=== PATIENT | female | born 1960 | race Caucasian/White ===

== ENCOUNTER 2018-07-04 14:30 | Inpatient (IN) | payer MEDICAID ==
[2018-07-04] MEDS ORDERED: PROMETHAZINE HCL 25 MG TABLET PO ONE (15:38)
[2018-07-04] MEDS ORDERED: RINGERS SOLUTION,LACTATED 1,000 ML IV ONE ×2 (15:38→20:00)
--- NOTE | 2018-07-04 15:39 | ER Document Report ---
ED Medical Screen (RME) - General Chief Complaint: Nausea/Vomiting Stated Complaint: CHILLS,VOMITING,NAUSEA Time Seen by Provider: 07/04/18 15:37 Primary Care Provider: GEOFF HOLDER MD [Primary Care Provider] - Follow up as needed Mode of Arrival: Ambulatory Information source: Patient Notes: This is a 57-year-old female with a history of hypertension, dyslipidemia, diabetes, GERD who presents to the emergency room with a one-week history of nausea, vomiting, fever, sweats, body aches. TRAVEL OUTSIDE OF THE [place] IN LAST 30 DAYS: No - Related Data Allergies/Adverse Reactions: Penicillins Allergy (Verified 07/04/18 14:33) Sulfa (Sulfonamide Antibiotics) Allergy (Verified 07/04/18 14:33) Past Medical History - Social History Chew tobacco use (# tins/day): No Frequency of alcohol use: None Drug Abuse: None - Past Medical History Cardiac Medical History: Reports: Hx Hypercholesterolemia, Hx Hypertension Endocrine Medical History: Reports: Hx Diabetes Mellitus Type 2 Renal/ Medical History: Denies: Hx Peritoneal Dialysis Psychiatric Medical History: Reports: Hx Anxiety Past Surgical History: Reports: Hx Cholecystectomy, Hx Tonsillectomy, Hx Tubal Ligation - Immunizations Hx Diphtheria, Pertussis, Tetanus Vaccination: Yes Physical Exam - Vital signs Vitals: Temp Pulse Resp BP Pulse Ox 100.0 F 72 20 125/76 98 07/04/18 14:35 07/04/18 14:35 07/04/18 14:35 07/04/18 14:35 07/04/18 14:35 Course - Vital Signs Vital signs: Temp Pulse Resp BP Pulse Ox 100.0 F 72 20 125/76 98 07/04/18 14:35 07/04/18 14:35 07/04/18 14:35 07/04/18 14:35 07/04/18 14:35 Doctor's Discharge - Discharge Referrals: GEOFF HOLDER MD [Primary Care Provider] - Follow up as needed
[2018-07-04] MEDS ORDERED: NORMAL SALINE 1000 ML 1,000 ML IV ONE (16:11)
[2018-07-04 16:22] LABS: HEMATOCRIT 37.3 % (36.0-47.0); HEMOGLOBIN 12.4 g/dL (12.0-15.5); MEAN CORPUSCULAR HEMOGLOBIN 28.7 pg (27.0-33.4); MEAN CORPUSCULAR HGB CONC 33.2 g/dL (32.0-36.0); MEAN CORPUSCULAR VOLUME 86 fl (80-97); PLATELET COUNT 290 10^3/uL (150-450); RED BLOOD COUNT 4.32 10^6/uL (3.72-5.28); RED CELL DISTRIBUTION WIDTH 14.8 % (11.5-14.0); WHITE BLOOD COUNT 12.8 10^3/uL (4.0-10.5)
[2018-07-04 16:38] LABS: ALANINE AMINOTRANSFERASE 32 U/L (9-52); ALBUMIN 4.4 g/dL (3.5-5.0); ALKALINE PHOSPHATASE 171 U/L (38-126); ASPARTATE AMINO TRANSFERASE 44 U/L (14-36); BILIRUBIN,DIRECT 0.5 mg/dL (0.0-0.4); BILIRUBIN,TOTAL 0.7 mg/dL (0.2-1.3); BLOOD UREA NITROGEN 23 mg/dL (7-20); CALCIUM 10.3 mg/dL (8.4-10.2); POTASSIUM 3.8 mmol/L (3.6-5.0); TOTAL PROTEIN 8.2 g/dL (6.3-8.2)
[2018-07-04 16:43] LABS: CARBON DIOXIDE 18 mmol/L (22-30); CHLORIDE 92 mmol/L (98-107)
[2018-07-04 16:45] LABS: ABSOLUTE LYMPHOCYTES# (MANUAL) 1.5 10^3/uL (0.5-4.7); ABSOLUTE NEUTROPHILS# (MANUAL) 10.2 10^3/uL (1.7-8.2); BAND NEUTROPHILS % (MANUAL) 2 % (3-5); BASOPHILS % (MANUAL) 0 % (0-2); EOSINOPHILS % (MANUAL) 0 % (0-6); LYMPHOCYTES % (MANUAL) 12 % (13-45); MONOCYTES % (MANUAL) 8 % (3-13); SEGMENTED NEUTROPHILS % (MAN) 78 % (42-78); TOTAL CELLS COUNTED 100
[2018-07-04 16:48] LABS: ANION GAP 21 (5-19); TOXIC GRANULATION SLIGHT; TOXIC VACUOLATION PRESENT
[2018-07-04 16:49] LABS: ANISOCYTOSIS SLIGHT; OVALOCYTES SLIGHT; PLATELET COMMENT ADEQUATE; POIKILOCYTOSIS SLIGHT
[2018-07-04 16:50] LABS: GLUCOSE 423 mg/dL (75-110)
[2018-07-04 16:52] LABS: PLATELET LARGE PRESENT
[2018-07-04 16:55] LABS: A TYPE INFLUENZA AG NEGATIVE (NEGATIVE); B INFLUENZA AG NEGATIVE (NEGATIVE)
--- NOTE | 2018-07-04 19:02 | ER Document Report ---
ED General - General Chief Complaint: Nausea/Vomiting Stated Complaint: CHILLS,VOMITING,NAUSEA Time Seen by Provider: 07/04/18 15:37 Primary Care Provider: GEOFF HOLDER MD [Primary Care Provider] - Follow up as needed Mode of Arrival: Ambulatory Notes: Patient is a 57-year-old female past medical history of diabetes, does not currently use insulin, hypertension, is a prior surgical history of a cholecystectomy who presents with 5 days of generalized abdominal pain, cramping, nausea, vomiting and not having a bowel movement. Was seen by her primary care physician 4 days ago, diagnosed with a viral illness, started on ondansetron without any relief of her symptoms. She states the only thing she has been able to tolerate is intermittent sips of water and occasionally bites of banana. She states anything else that she tries to eat or drink prompted her to vomit almost immediately. Denies any history of similar symptoms in the past. Has had a temperature up to 101.6 F. She also notes associated constitutional symptoms of myalgias, fatigue and lightheadedness. Abdominal cramping is described as intermittent, diffuse, moderate to severe in nature. Nothing has been noted to improve or worsen her symptoms overall. TRAVEL OUTSIDE OF THE [place] IN LAST 30 DAYS: No - Related Data Allergies/Adverse Reactions: Penicillins Allergy (Verified 07/04/18 14:33) Sulfa (Sulfonamide Antibiotics) Allergy (Verified 07/04/18 14:33) Past Medical History - General Information source: Patient - Social History Smoking Status: Never Smoker Chew tobacco use (# tins/day): No Frequency of alcohol use: None Drug Abuse: None Lives with: Alone Family History: Reviewed & Not Pertinent Patient has suicidal ideation: No Patient has homicidal ideation: No - Past Medical History Cardiac Medical History: Reports: Hx Hypercholesterolemia, Hx Hypertension Endocrine Medical History: Reports: Hx Diabetes Mellitus Type 2 Renal/ Medical History: Denies: Hx Peritoneal Dialysis Psychiatric Medical History: Reports: Hx Anxiety Past Surgical History: Reports: Hx Cholecystectomy, Hx Tonsillectomy, Hx Tubal Ligation - Immunizations Hx Diphtheria, Pertussis, Tetanus Vaccination: Yes Review of Systems - Review of Systems Notes: Constitutional: Positive for fever. HENT: Negative for sore throat. Eyes: Negative for visual changes. Cardiovascular: Negative for chest pain. Respiratory: Negative for shortness of breath. Gastrointestinal: Positive for abdominal cramping and vomiting Genitourinary: Negative for dysuria. Musculoskeletal: Negative for back pain. Skin: Negative for rash. Neurological: Negative for headaches, weakness or numbness. 10 point ROS negative except as marked above and in HPI. Physical Exam - Vital signs Vitals: Temp Pulse Resp BP Pulse Ox 100.0 F 72 20 125/76 98 07/04/18 14:35 07/04/18 14:35 07/04/18 14:35 07/04/18 14:35 07/04/18 14:35 Interpretation: Normal Notes: PHYSICAL EXAMINATION: GENERAL: Ill in appearance but in no acute distress HEAD: Atraumatic, normocephalic. EYES: Pupils equal round and reactive to light, extraocular movements intact, sclera anicteric, conjunctiva are normal. ENT: nares patent, oropharynx clear without exudates. Moderately dry mucous membranes. NECK: Normal range of motion, supple without lymphadenopathy LUNGS: Breath sounds clear to auscultation bilaterally and equal. No wheezes rales or rhonchi. HEART: Regular tachycardia without murmurs ABDOMEN: Somewhat distended although soft abdomen. Diffusely tender most localized to the left lower quadrant, left mid quadrant and left upper quadrant. No focal tenderness the right lower quadrant. No rebound or guarding. EXTREMITIES: Normal range of motion, no pitting or edema. No cyanosis. NEUROLOGICAL: No focal neurological deficits. Moves all extremities spontaneously and on command. PSYCH: Normal mood, normal affect. SKIN: Warm, Dry, normal turgor, no rashes or lesions noted. Course - Re-evaluation Re-evalutation: 07/04/18 19:01 Patient presents with 5 days of fever, nausea, vomiting and lack of bowel movement. Abdominal exam somewhat distended. Patient's labs are somewhat suggestive of diabetic ketoacidosis that she is hyperglycemic with an associated anion gap and reduced bicarb although this could alternatively be simply hyperglycemia in the context of persistent vomiting. Venous blood gas and urinalysis are pending to further clarify. IV fluid resuscitation has been ongoing. She continues to have nausea and vomiting. Ventral hernia itself on exam is soft, compressible, easily reduced do not suspect entrapped hernia. 07/04/18 20:04 Urinalysis is consistent with acute pyelonephritis which would account for the patient's symptoms. Venous blood gas reveals normal pH the patient does have ketones in the urine. This is more consistent with a metabolic acidosis and persistent vomiting as opposed to true diabetic ketoacidosis. Will therefore withhold insulin infusion at this time. Patient will receive ongoing IV fluids. Has vomited controlled after receiving 10 mg of metoclopramide. Avis with the hospitalist Dr. Pedro has accepted the patient to medical floor admission. - Vital Signs Vital signs: Temp Pulse Resp BP Pulse Ox 100.2 F 101 H 16 115/64 97 07/04/18 19:56 07/04/18 18:26 07/04/18 18:26 07/04/18 18:26 07/04/18 18:26 - Laboratory Result Diagrams: 07/04/18 16:00 07/04/18 16:00 Laboratory results interpreted by me: 07/04/18 07/04/18 07/04/18 16:00 16:00 18:05 WBC 12.8 H RDW 14.8 H Band Neutrophils % 2 L Lymphocytes % (Manual) 12 L Abs Neuts (Manual) 10.2 H VBG HCO3 Sodium 131.0 L Chloride 92 L Carbon Dioxide 18 L Anion Gap 21 H BUN 23 H Glucose 423 H* POC Glucose 353 H Calcium 10.3 H Direct Bilirubin 0.5 H AST 44 H Alkaline Phosphatase 171 H Urine Protein Urine Glucose (UA) Urine Ketones Urine Blood Ur Leukocyte Esterase 07/04/18 07/04/18 19:15 19:15 WBC RDW Band Neutrophils % Lymphocytes % (Manual) Abs Neuts (Manual) VBG HCO3 19.8 L Sodium Chloride Carbon Dioxide Anion Gap BUN Glucose POC Glucose Calcium Direct Bilirubin AST Alkaline Phosphatase Urine Protein 100 H Urine Glucose (UA) >=500 H Urine Ketones 80 H Urine Blood MODERATE H Ur Leukocyte Esterase LARGE H Discharge - Discharge Clinical Impression: Metabolic acidosis, Pyelonephritis, Hyperglycemia Intractable nausea and vomiting Qualifiers: Vomiting type: unspecified Qualified Code(s): R11.2 - Nausea with vomiting, unspecified Condition: Fair Disposition: ADMITTED INPATIENT Admitting Provider: Hospitalist Unit Admitted: Medical Floor Referrals: GEOFF HOLDER MD [Primary Care Provider] - Follow up as needed
[2018-07-04 19:26] LABS: VENOUS BLOOD BASE EXCESS -5.9 mmol/L; VENOUS BLOOD HCO3 19.8 mmol/L (20-32); VENOUS BLOOD PH 7.31 (7.30-7.42)
[2018-07-04 19:29] LABS: APPEARANCE,URINE CLOUDY; BILIRUBIN,URINE NEGATIVE (NEGATIVE); COLOR,URINE YELLOW; GLUCOSE, URINE >=500 mg/dL (NEGATIVE); KETONES,URINE 80 mg/dL (NEGATIVE); LEUKOCYTE ESTERASE,URINE LARGE (NEGATIVE); NITRITE,URINE NEGATIVE (NEGATIVE); PROTEIN,URINE 100 mg/dL (NEGATIVE); URINE SPECIFIC GRAVITY 1.022; UROBILINOGEN,URINE NEGATIVE mg/dL (<2.0)
[2018-07-04] MEDS ORDERED: METOCLOPRAMIDE HCL INJ/PF 10 MG/2 ML SDV IV ONE ×2 (19:49→19:54)
[2018-07-04] MEDS ORDERED: INSULIN REG, HUMAN 100 UNIT/ML 3 ML VIAL (PYX) IV ONE (19:55)
[2018-07-04] MEDS ORDERED: POTASSI CL 20 MEQ/50 ML RIDER 20 MEQ/50 ML RTUPB IV ONE (19:55)
[2018-07-04] MEDS ORDERED: CEFTRIAXONE INJ 1000 MG VIAL IV ONE (20:00)
[2018-07-04] MEDS ORDERED: MAGNESIUM HYDROXIDE SUSP 30 ML UDCUP PO PRN (20:17)
[2018-07-04] MEDS ORDERED: MAG HYDROX/AL HYDROX/SIMETH SUSP 30 ML UDCUP PO PRN (20:17)
[2018-07-04] MEDS ORDERED: DIAZEPAM INJ 10 MG/2 ML DISP.SYRIN IV PRN (20:22)
[2018-07-04] MEDS ORDERED: ACETAMINOPHEN 650 MG SUPP.RECT PR PRN (20:22)
[2018-07-04] MEDS ORDERED: NICOTINE 21 MG/24 HR PATCH.TD24 TD PRN (20:22)
[2018-07-04] MEDS ORDERED: DEXTROSE 50%-WATER 25 GM/50 ML DISP.SYRIN IV PRN ×2 (20:24)
[2018-07-04] MEDS ORDERED: DEXTROSE 40% GEL 15 GM TUBE PO PRN ×2 (20:24)
[2018-07-04] MEDS ORDERED: GLUCAGON,HUMAN RECOMB 1 MG INJ IM PRN (20:24)
[2018-07-04] MEDS ORDERED: HYDRALAZINE HCL INJ/PF 20 MG/1 ML SDV IV PRN (20:26)
[2018-07-04] MEDS ORDERED: INSULIN LISPRO 100 UNIT/ML 3 ML VIAL SUBCUT SCH (22:00)
[2018-07-05] MEDS: METOCLOPRAMIDE HCL INJ/PF 10 MG/2 ML SDV IV SCH ×5 (00:41→21:34)
[2018-07-05] MEDS: SUCRALFATE SUSP 1 GM/10 ML UDCUP PO SCH ×5 (00:42→21:32)
[2018-07-05] MEDS: NALBUPHINE HCL INJ 10 MG/1 ML AMPULE IV PRN ×5 (00:42→20:01)
[2018-07-05] MEDS: PANTOPRAZOLE SODIUM 40 MG VIAL IV SCH ×3 (00:42→21:33)
[2018-07-05] MEDS: HEPARIN SOD (PORCINE) 5,000 UNIT/ML 1 ML SYRINGE SUBCUT SCH ×4 (00:43→21:33)
[2018-07-05] MEDS: POTASSI CL 20 MEQ/1/2NS 1L 20 MEQ/1,000 ML RTUINJ IV PRN ×3 (02:28→20:26)
--- NOTE | 2018-07-05 03:31 | PDOC H&P ---
History of Present Illness Admission Date/PCP: GEOFF HOLDER MD Patient complains of: Nausea with vomiting History of Present Illness: YULIANA PAEZ is a 57 year old female is a 57-year-old female who presented to the emergency room with a one-week history of nausea and vomiting. She admits that for the last week she has been having constant, aching left flank pain and episodic cramping epigastric abdominal pain, associated with vomiting, both have been progressively worsening to the point where they are now severe. She experiencing severe nausea and vomiting which has precluded her from any oral intake more than just a sip of water or a small sliver of a banana slice. Her nausea vomiting and abdominal pain have been accompanied by subjec tive fever and chills, constipation, generalized malaise and a decreased appetite all resulting in a weight loss of 9 pounds over the last 5 days. The patient denies prior similar episodes and has not identified any additional aggravating or ameliorating factors for her nausea vomiting and abdominal pain. In the emergency room she was found to have acute kidney injury secondary to dehydration and an obvious pyelonephritis. She was subsequently admitted to the hospital for further evaluation and treatment. Past Medical History Cardiac Medical History: Reports: Hyperlipidema, Hypertension Denies: Atrial Fibrillation, Congestive Heart Failure, Coronary Artery Disease, Myocardial Infarction Pulmonary Medical History: Denies: Asthma, Chronic Obstructive Pulmonary Disease (COPD) EENT Medical History: Denies: Cataracts Neurological Medical History: Denies: Hemorrhagic CVA, Ischemic CVA, Seizures Endocrine Medical History: Reports: Diabetes Mellitus Type 2, Obesity Denies: Diabetes Mellitus Type 1, Hyperthyroidism, Hypothyroidism Renal/ Medical History: Denies: Chronic Kidney Disease, Nephrolithiasis Malignancy Medical History: Reports: None GI Medical History: Reports: Gastroesophageal Reflux Disease Denies: Cirrhosis, Hepatitis Musculoskeltal Medical History: Denies: Arthritis, Gout Skin Medical History: Denies: Eczema, Psoriasis Psychiatric Medical History: Denies: Alcohol Dependency, Substance Abuse, Tobacco Dependency Traumatic Medical History: Reports: None Hematology: Reports: Anemia Denies: Bleeding Tendencies Infectious Medical History: Reports: None Past Surgical History Past Surgical History: Reports: Cholecystectomy, Tonsillectomy, Tubal Ligation, Other - D&C for spontaneous , bladder sling Social History Information Source: Patient Lives with: Alone Smoking Status: Never Smoker Frequency of Alcohol Use: None Hx Recreational Drug Use: No Drugs: None Hx Prescription Drug Abuse: No - Advance Directive Resuscitation Status: Full Code Surrogate healthcare decision maker:: Her daughter Tete Family History Family History: CAD, DM, Hypertension Parental Family History Reviewed: Yes Children Family History Reviewed: No Sibling(s) Family History Reviewed.: Yes Medication/Allergy Home Medications: Lisinopril 40 mg PO DAILY 08/09/14 Simvastatin 40 mg PO DAILY 08/09/14 Furosemide [Lasix 20 mg Tablet] 20 mg PO DAILYP PRN 07/04/18 Metformin HCl [Glucophage 500 mg Tablet] 500 mg PO MEALS 07/04/18 Metoprolol Tartrate [Lopressor 50 mg Tablet] 50 mg PO Q12 07/04/18 Ondansetron [Zofran Odt 4 mg Tablet] 8 mg PO Q8HP PRN 07/04/18 Allergies/Adverse Reactions: Penicillins Allergy (Verified 07/04/18 14:33) Sulfa (Sulfonamide Antibiotics) Allergy (Verified 07/04/18 14:33) Review of Systems Constitutional: PRESENT: as per HPI, chills, fever(s), other - Malaise Eyes: ABSENT: visual disturbances, other - Ocular pain Ears: ABSENT: hearing changes, other - Ear pain Nose, Mouth, and Throat: ABSENT: mouth pain, sore throat Cardiovascular: ABSENT: chest pain, palpitations Respiratory: ABSENT: cough, dyspnea Gastrointestinal: PRESENT: as per HPI, abdominal pain, constipation, nausea, v omiting. ABSENT: diarrhea, hematemesis Genitourinary: ABSENT: dysuria, hematuria Musculoskeletal: ABSENT: deformity, joint swelling Integumentary: ABSENT: pruritus, rash Neurological: ABSENT: confusion, convulsions, focal weakness, memory loss Psychiatric: ABSENT: anxiety, depression Endocrine: ABSENT: cold intolerance, heat intolerance Hematologic/Lymphatic: ABSENT: easy bleeding, easy bruising Physical Exam Vital Signs: Temp Pulse Resp BP Pulse Ox 100.2 F 101 H 16 115/64 97 07/04/18 19:56 07/04/18 18:26 07/04/18 18:26 07/04/18 18:26 07/04/18 18:26 Intake & Output 07/02/18 07/03/18 07/04/18 23:59 23:59 23:59 Intake Total 1000 Balance 1000 Weight 100.7 kg General appearance: PRESENT: no acute distress, cooperative, obese Head exam: PRESENT: atraumatic, normocephalic Eye exam: PRESENT: conjunctiva pink. ABSENT: scleral icterus Ear exam: PRESENT: normal external ear exam. ABSENT: bleeding, drainage Mouth exam: PRESENT: dry mucosa, neck supple Neck exam: ABSENT: thyromegaly, tracheal deviation Respiratory exam: PRESENT: clear to auscultation lilly, symmetrical, unlabored Cardiovascular exam: PRESENT: RRR. ABSENT: clicks, gallop, rubs Pulses: PRESENT: normal radial pulses, normal dorsalis pedis pul Vascular exam: PRESENT: normal capillary refill. ABSENT: pallor GI/Abdominal exam: PRESENT: normal bowel sounds, soft, tenderness - Severe tenderness over the entire abdomen to light palpation. Left CVA tenderness is also noted. Rectal exam: PRESENT: deferred Extremities exam: ABSENT: joint swelling, pedal edema Musculoskeletal exam: ABSENT: deformity, dislocation Neurological exam: PRESENT: alert, oriented to person, oriented to place, oriented to time, oriented to situation, CN II-XII grossly intact. ABSENT: mo tor sensory deficit Psychiatric exam: PRESENT: appropriate affect, normal mood Skin exam: PRESENT: dry, intact, warm. ABSENT: jaundice, rash, urticaria Results Laboratory Results: 07/04/18 16:00 07/04/18 16:00 07/04/18 07/04/18 07/04/18 16:00 16:00 19:15 WBC 12.8 H RBC 4.32 Hgb 12.4 Hct 37.3 MCV 86 MCH 28.7 MCHC 33.2 RDW 14.8 H Plt Count 290 Seg Neutrophils % Not Reportable Lymphocytes % Not Reportable Monocytes % Not Reportable Eosinophils % Not Reportable Basophils % Not Reportable Absolute Neutrophils Not Reportable Absolute Lymphocytes Not Reportable Absolute Monocytes Not Reportable Absolute Eosinophils Not Reportable Absolute Basophils Not Reportable VBG pH 7.31 VBG pCO2 40.0 VBG HCO3 19.8 L VBG Base Excess -5.9 Sodium 131.0 L Potassium 3.8 Chloride 92 L Carbon Dioxide 18 L Anion Gap 21 H BUN 23 H Creatinine 0.86 Est GFR ( Amer) > 60 Est GFR (Non-Af Amer) > 60 Glucose 423 H* Calcium 10.3 H Total Bilirubin 0.7 AST 44 H ALT 32 Alkaline Phosphatase 171 H Total Protein 8.2 Albumin 4.4 Urine Color Urine Appearance Urine pH Ur Specific [place] Urine Protein Urine Glucose (UA) Urine Ketones Urine Blood Urine Nitrite Ur Leukocyte Esterase Urine WBC (Auto) Urine RBC (Auto) 07/04/18 19:15 WBC RBC Hgb Hct MCV MCH MCHC RDW Plt Count Seg Neutrophils % Lymphocytes % Monocytes % Eosinophils % Basophils % Absolute Neutrophils Absolute Lymphocytes Absolute Monocytes Absolute Eosinophils Absolute Basophils VBG pH VBG pCO2 VBG HCO3 VBG Base Excess Sodium Potassium Chloride Carbon Dioxide Anion Gap BUN Creatinine Est GFR ( Amer) Est GFR (Non-Af Amer) Glucose Calcium Total Bilirubin AST ALT Alkaline Phosphatase Total Protein Albumin Urine Color YELLOW Urine Appearance CLOUDY Urine pH 5.0 Ur Specific [place] 1.022 Urine Protein 100 H Urine Glucose (UA) >=500 H Urine Ketones 80 H Urine Blood MODERATE H Urine Nitrite NEGATIVE Ur Leukocyte Esterase LARGE H Urine WBC (Auto) >182 Urine RBC (Auto) 19 Assessment & Plan - Diagnosis (1) Pyelonephritis Is this a current diagnosis for this admission?: Yes Plan: Patient be treated with IV fluids and other supportive and symptomatic cares as appropriate. Additionally she will be on Rocephin 1 g IV every 24 hours awaiting urine culture results for more specific therapy. Patient's pain associated with her pyelonephritis will be treated with Nubain 10 mg IV every 3 hours as needed. (2) Intractable nausea and vomiting Qualifiers: Vomiting type: unspecified Qualified Code(s): R11.2 - Nausea with vomiting, unspecified Is this a current diagnosis for this admission?: Yes Plan: Patient be treated with supportive and symptomatic cares utilizing a regimen of antiemetics and proton pump inhibitors. Additionally she will receive IV fluids until she is able to eat a substantial diet and take in adequate oral fluids. An amylase and lipase will be obtained in the morning for reevaluation of possible pancreatic involvement. (3) Metabolic acidosis Is this a current diagnosis for this admission?: Yes Plan: Patient be treated with IV fluids 167 mL/h utilizing half-normal saline with 20 mEq of KCl. Her CBC and basic metabolic profile as well as a serum magnesium be followed on a daily basis. A venous blood gas will be obtained in the morning. (4) Diabetes mellitus type 2 in obese Is this a current diagnosis for this admission?: Yes Plan: Patient will be treated with a sliding scale before meals and at bedtime initially with further intervention as appropriate. - Time Time Spent: 30 to 50 Minutes Critical Time spent with patient: Less than 15 minutes Medications reviewed and adjusted accordingly: Yes Anticipated discharge: Home - Inpatient Certification Based on my medical assessment, after consideration of the patient's comorbidities, presenting symptoms, or acuity I expect that the services needed warrant INPATIENT care.: Yes I certify that my determination is in accordance with my understanding of Medicare's requirements for reasonable and necessary INPATIENT services [42 CFR 412.3e].: Yes Medical Necessity: Significant Comorbidiites Make Outpatient Treatment Too Risky, Need Close Monitoring Due to Risk of Patient Decompensation, Need For IV Fluids, Need for Pain Control, Need for IV Antibiotics, Risk of Complication if Not Cared For in Hospital
[2018-07-05 04:33] LABS: VENOUS BLOOD BASE EXCESS -9.7 mmol/L; VENOUS BLOOD HCO3 13.9 mmol/L (20-32); VENOUS BLOOD PCO2 24.6 mmHg (35-63); VENOUS BLOOD PH 7.37 (7.30-7.42)
[2018-07-05 04:36] LABS: HEMATOCRIT 33.2 % (36.0-47.0); HEMOGLOBIN 11.1 g/dL (12.0-15.5); MEAN CORPUSCULAR HEMOGLOBIN 28.7 pg (27.0-33.4); MEAN CORPUSCULAR HGB CONC 33.5 g/dL (32.0-36.0); MEAN CORPUSCULAR VOLUME 86 fl (80-97); PLATELET COUNT 268 10^3/uL (150-450); RED BLOOD COUNT 3.87 10^6/uL (3.72-5.28); RED CELL DISTRIBUTION WIDTH 14.8 % (11.5-14.0); WHITE BLOOD COUNT 10.8 10^3/uL (4.0-10.5)
[2018-07-05 04:48] LABS: BLOOD UREA NITROGEN 17 mg/dL (7-20); CALCIUM 9.4 mg/dL (8.4-10.2); CARBON DIOXIDE 14 mmol/L (22-30); CHLORIDE 98 mmol/L (98-107); CHOLESTEROL 179.54 mg/dL (0-200); GLUCOSE 330 mg/dL (75-110); LIPASE 45.5 U/L (23-300); TRIGLYCERIDES 254 mg/dL (<150)
[2018-07-05 04:52] LABS: AMYLASE < 30 U/L (30-110); VLDL CHOLESTEROL 50.8 mg/dL (10-31)
[2018-07-05 04:53] LABS: SODIUM 132.8 mmol/L (137-145)
[2018-07-05 05:01] LABS: ANION GAP 21 (5-19)
[2018-07-05 05:02] LABS: ABSOLUTE LYMPHOCYTES# (MANUAL) 2.9 10^3/uL (0.5-4.7); ABSOLUTE MONOCYTES # (MANUAL) 0.8 10^3/uL (0.1-1.4); ABSOLUTE NEUTROPHILS# (MANUAL) 7.1 10^3/uL (1.7-8.2); BASOPHILS % (MANUAL) 0 % (0-2); EOSINOPHILS % (MANUAL) 0 % (0-6); LYMPHOCYTES % (MANUAL) 27 % (13-45); MONOCYTES % (MANUAL) 7 % (3-13); SEGMENTED NEUTROPHILS % (MAN) 66 % (42-78); TOTAL CELLS COUNTED 100
[2018-07-05 05:03] LABS: PLATELET COMMENT ADEQUATE; RBC MORPHOLOGY COMMENT NORMO-CYTIC/CHROMIC
[2018-07-05 05:10] LABS: DIRECT LDL 103 mg/dL (<100)
[2018-07-05 05:16] LABS: FREE T3 2.65 pg/mL (2.77-5.27); FREE T4 (FREE THYROXINE) 1.13 ng/dL (0.78-2.19)
[2018-07-05 05:30] LABS: THYROID STIMULATING HORMONE 5.07 uIU/mL (0.47-4.68)
[2018-07-05] MEDS: INSULIN REG, HUMAN 100 UNIT/ML 3 ML VIAL (PYX) SUBCUT PRN ×4 (06:32→22:37)
[2018-07-05] MEDS: PROMETHAZINE HCL INJ 25 MG/1 ML VIAL IV PRN ×4 (07:30→21:35)
[2018-07-05] MEDS: CEFTRIAXONE 1 GM/D5W RTU 1 GM/50 ML RTUPB IV SCH (09:38)
[2018-07-05] MEDS ORDERED: DOCUSATE SODIUM 100 MG/10 ML UDC PO SCH (10:00)
[2018-07-05] MEDS: DOCUSATE SODIUM 100 MG CAPSULE PO SCH ×2 (12:05→18:21)
--- NOTE | 2018-07-05 17:53 | PDOC PROGRESS REPORT ---
Subjective Progress Note for:: 07/05/18 Subjective:: 57 y.o. F with HTN, HLD, HYPOthyroidism, DM is admittde to [facility] for pyelonephritis. Patient seen this afternoon on rounds, she is resting in bed. She appears uncomfortable, laying on her right side in order to "take pressure off the back."The patient endorses a history of chronic lower back pain, for which she only takes Tylenol or Motrin as needed. The patient states that her pain does not feel like typical chronic back pain. (+) CVA tenderness. Denies dysuria, urinary frequency or urgency. Currently receiving Rocephin for her UTI/pyelonephritis. PRN nubain for analgesia. Reason For Visit: ACUTE PYELONEPHRITIS Physical Exam Vital Signs: Temp Pulse Resp BP Pulse Ox 98.5 F 86 17 132/56 H 96 07/05/18 16:00 07/05/18 16:00 07/05/18 16:00 07/05/18 16:00 07/05/18 16:00 Intake & Output 07/04/18 07/05/18 07/06/18 06:59 06:59 07:59 Intake Total 2450 1503 Balance 2450 1503 Weight 102.9 kg General appearance: PRESENT: mild distress - secondary to pain, well-developed, well-nourished Head exam: PRESENT: atraumatic Eye exam: PRESENT: conjunctiva pink, PERRLA Mouth exam: PRESENT: moist, tongue midline Neck exam: PRESENT: full ROM Respiratory exam: PRESENT: clear to auscultation lilly, symmetrical, unlabored Cardiovascular exam: PRESENT: RRR Pulses: PRESENT: normal radial pulses, normal dorsalis pedis pul Vascular exam: PRESENT: normal capillary refill GI/Abdominal exam: PRESENT: soft. ABSENT: distended, tenderness Rectal exam: PRESENT: deferred Extremities exam: PRESENT: full ROM Musculoskeletal exam: PRESENT: full ROM, normal inspection, tenderness - (+) CVA tenderness Neurological exam: PRESENT: alert, awake, oriented to person, oriented to place, oriented to time, oriented to situation Psychiatric exam: PRESENT: appropriate affect Skin exam: PRESENT: dry, intact, normal color Results Laboratory Results: 07/05/18 04:14 07/05/18 04:14 07/04/18 07/04/18 07/04/18 19:15 19:15 20:20 WBC RBC Hgb Hct MCV MCH MCHC RDW Plt Count Seg Neutrophils % Lymphocytes % Monocytes % Eosinophils % Basophils % Absolute Neutrophils Absolute Lymphocytes Absolute Monocytes Absolute Eosinophils Absolute Basophils VBG pH 7.31 VBG pCO2 40.0 VBG HCO3 19.8 L VBG Base Excess -5.9 Sodium Potassium Chloride Carbon Dioxide Anion Gap BUN Creatinine Est GFR ( Amer) Est GFR (Non-Af Amer) Glucose Lactic Acid 1.8 Calcium Magnesium Triglycerides Cholesterol LDL Cholesterol Direct VLDL Cholesterol HDL Cholesterol Amylase Lipase TSH Free T4 Free T3 pg/mL Urine Color YELLOW Urine Appearance CLOUDY Urine pH 5.0 Ur Specific [place] 1.022 Urine Protein 100 H Urine Glucose (UA) >=500 H Urine Ketones 80 H Urine Blood MODERATE H Urine Nitrite NEGATIVE Ur Leukocyte Esterase LARGE H Urine WBC (Auto) >182 Urine RBC (Auto) 19 07/05/18 07/05/18 07/05/18 00:30 04:14 04:14 WBC 10.8 H RBC 3.87 Hgb 11.1 L Hct 33.2 L MCV 86 MCH 28.7 MCHC 33.5 RDW 14.8 H Plt Count 268 Seg Neutrophils % Not Reportable Lymphocytes % Not Reportable Monocytes % Not Reportable Eosinophils % Not Reportable Basophils % Not Reportable Absolute Neutrophils Not Reportable Absolute Lymphocytes Not Reportable Absolute Monocytes Not Reportable Absolute Eosinophils Not Reportable Absolute Basophils Not Reportable VBG pH VBG pCO2 VBG HCO3 VBG Base Excess Sodium Potassium Chloride Carbon Dioxide Anion Gap BUN Creatinine Est GFR ( Amer) Est GFR (Non-Af Amer) Glucose Lactic Acid 0.8 0.6 L Calcium Magnesium Triglycerides Cholesterol LDL Cholesterol Direct VLDL Cholesterol HDL Cholesterol Amylase Lipase TSH Free T4 Free T3 pg/mL Urine Color Urine Appearance Urine pH Ur Specific [place] Urine Protein Urine Glucose (UA) Urine Ketones Urine Blood Urine Nitrite Ur Leukocyte Esterase Urine WBC (Auto) Urine RBC (Auto) 07/05/18 07/05/18 07/05/18 04:14 04:14 04:14 WBC RBC Hgb Hct MCV MCH MCHC RDW Plt Count Seg Neutrophils % Lymphocytes % Monocytes % Eosinophils % Basophils % Absolute Neutrophils Absolute Lymphocytes Absolute Monocytes Absolute Eosinophils Absolute Basophils VBG pH 7.37 VBG pCO2 24.6 L VBG HCO3 13.9 L VBG Base Excess -9.7 Sodium 132.8 L Potassium 4.0 Chloride 98 Carbon Dioxide 14 L Anion Gap 21 H BUN 17 Creatinine 0.70 Est GFR ( Amer) > 60 Est GFR (Non-Af Amer) > 60 Glucose 330 H Lactic Acid Calcium 9.4 Magnesium 1.9 Triglycerides 254 H Cholesterol 179.54 LDL Cholesterol Direct 103 H VLDL Cholesterol 50.8 H HDL Cholesterol 33 L Amylase < 30 L Lipase 45.5 TSH 5.07 H Free T4 1.13 Free T3 pg/mL 2.65 L Urine Color Urine Appearance Urine pH Ur Specific [place] Urine Protein Urine Glucose (UA) Urine Ketones Urine Blood Urine Nitrite Ur Leukocyte Esterase Urine WBC (Auto) Urine RBC (Auto) Status: Imported from PACS Assessment & Plan - Diagnosis (1) Pyelonephritis Is this a current diagnosis for this admission?: Yes Plan: As evidenced by urinalysis indicative of UTI Low-grade fever upon admission (+) Flank pain. (+) CVA tenderness (+) Leukocytosis. Currently awaiting urine cultures and sensitivities Empiric antibiotic treatment with Rocephin IV Nubain as needed for pain Tylenol as needed for pain or fever (2) Diabetes mellitus type 2 in obese Is this a current diagnosis for this admission?: Yes Plan: H diabetes Accu-Cheks AC at bedtime Humalog sliding scale insulin (3) HTN (hypertension) Qualifiers: Hypertension type: essential hypertension Qualified Code(s): I10 - Essential (primary) hypertension Is this a current diagnosis for this admission?: Yes Plan: [facility] HTN Continue home dose metoprolol and lisinopril - Time Time Spent with patient: 15-24 minutes Medications reviewed and adjusted accordingly: Yes Anticipated discharge: Home Within: within 72 hours - Inpatient Certification Based on my medical assessment, after consideration of the patient's comorbidities, presenting symptoms, or acuity I expect that the services needed warrant INPATIENT care.: Yes I certify that my determination is in accordance with my understanding of Medicare's requirements for reasonable and necessary INPATIENT services [42 CFR 412.3e].: Yes Medical Necessity: Need For IV Fluids, Need for IV Antibiotics
[2018-07-05] MEDS ORDERED: LIDOCAINE 5% (700 MG) TRANSDERMAL ADH..PATCH TP ONE (19:00)
[2018-07-05] MEDS: ACETAMINOPHEN 325 MG TABLET PO PRN (20:23)
[2018-07-05] MEDS ORDERED: LIDOCAINE 5% (700 MG) TRANSDERMAL ADH..PATCH ONE (21:25)
[2018-07-06] MEDS: NALBUPHINE HCL INJ 10 MG/1 ML AMPULE IV PRN ×5 (01:19→23:22)
[2018-07-06] MEDS: ACETAMINOPHEN 325 MG TABLET PO PRN ×2 (04:09→16:50)
[2018-07-06] MEDS: HEPARIN SOD (PORCINE) 5,000 UNIT/ML 1 ML SYRINGE SUBCUT SCH ×3 (05:33→21:47)
[2018-07-06 06:36] LABS: HEMATOCRIT 30.7 % (36.0-47.0); HEMOGLOBIN 10.4 g/dL (12.0-15.5); MEAN CORPUSCULAR HEMOGLOBIN 28.8 pg (27.0-33.4); MEAN CORPUSCULAR VOLUME 85 fl (80-97); PLATELET COUNT 227 10^3/uL (150-450); RED BLOOD COUNT 3.62 10^6/uL (3.72-5.28); RED CELL DISTRIBUTION WIDTH 15.2 % (11.5-14.0); WHITE BLOOD COUNT 9.2 10^3/uL (4.0-10.5)
[2018-07-06] MEDS: POTASSI CL 20 MEQ/1/2NS 1L 20 MEQ/1,000 ML RTUINJ IV PRN ×3 (06:43→20:38)
[2018-07-06 07:02] LABS: ANION GAP 17 (5-19); BLOOD UREA NITROGEN 12 mg/dL (7-20); CALCIUM 9.2 mg/dL (8.4-10.2); CARBON DIOXIDE 15 mmol/L (22-30); CHLORIDE 102 mmol/L (98-107); GLUCOSE 273 mg/dL (75-110); POTASSIUM 3.7 mmol/L (3.6-5.0); SODIUM 133.7 mmol/L (137-145)
[2018-07-06 07:09] LABS: ABSOLUTE LYMPHOCYTES# (MANUAL) 2.8 10^3/uL (0.5-4.7); ABSOLUTE MONOCYTES # (MANUAL) 0.8 10^3/uL (0.1-1.4); ABSOLUTE NEUTROPHILS# (MANUAL) 5.6 10^3/uL (1.7-8.2); BASOPHILS % (MANUAL) 0 % (0-2); EOSINOPHILS % (MANUAL) 0 % (0-6); LYMPHOCYTES % (MANUAL) 30 % (13-45); MONOCYTES % (MANUAL) 9 % (3-13); SEGMENTED NEUTROPHILS % (MAN) 61 % (42-78); TOTAL CELLS COUNTED 100
[2018-07-06 07:10] LABS: ANISOCYTOSIS SLIGHT; PLATELET COMMENT ADEQUATE; POLYCHROMASIA SLIGHT
[2018-07-06] MEDS: PROMETHAZINE HCL INJ 25 MG/1 ML VIAL IV PRN ×3 (08:33→18:27)
[2018-07-06] MEDS: METOCLOPRAMIDE HCL INJ/PF 10 MG/2 ML SDV IV SCH ×4 (08:33→22:03)
[2018-07-06] MEDS: SUCRALFATE SUSP 1 GM/10 ML UDCUP PO SCH ×4 (08:34→21:47)
[2018-07-06] MEDS: INSULIN REG, HUMAN 100 UNIT/ML 3 ML VIAL (PYX) SUBCUT PRN (08:46)
[2018-07-06] MEDS: PANTOPRAZOLE SODIUM 40 MG VIAL IV SCH ×2 (10:22→21:47)
[2018-07-06] MEDS: DOCUSATE SODIUM 100 MG CAPSULE PO SCH ×2 (10:23→17:01)
[2018-07-06] MEDS: CEFTRIAXONE 1 GM/D5W RTU 1 GM/50 ML RTUPB IV SCH (10:23)
[2018-07-06] MEDS ORDERED: MAGNESIUM HYDROXIDE SUSP 30 ML UDCUP PO PRN (11:08)
[2018-07-06] MEDS ORDERED: INSULIN REG, HUMAN 100 UNIT/ML 3 ML VIAL (PYX) ONE (13:08)
--- NOTE | 2018-07-06 16:27 | PDOC PROGRESS REPORT ---
Subjective Progress Note for:: 07/06/18 Subjective:: 57 y.o. F with HTN, HLD, HYPOthyroidism, DM is admittde to [facility] for pyelonephritis. Patient seen this afternoon on rounds, she is resting in bed. She appears much more comfortable today, still laying on her right side in order to "take pressure off the back." The patient states she is experiencing lower back pain, radiating around to bilateral flanks. Upon physical assessment, the patient is awake, alert and oriented, able to answer all questions appropriately. (+) CVA tenderness. Denies dysuria, urinary frequency or urgency. Currently receiving Rocephin for her UTI/pyelonephritis. PRN nubain for analgesia. Reason For Visit: ACUTE PYELONEPHRITIS Physical Exam Vital Signs: Temp Pulse Resp BP Pulse Ox 98.7 F 98 16 136/77 H 99 07/06/18 11:46 07/06/18 11:46 07/06/18 11:46 07/06/18 11:46 07/06/18 11:46 Intake & Output 07/05/18 07/06/18 07/07/18 05:59 06:59 06:59 Intake Total 1050 Output Total Balance 1050 Weight General appearance: PRESENT: obese Head exam: PRESENT: atraumatic Eye exam: PRESENT: conjunctiva pink, PERRLA Ear exam: PRESENT: normal external ear exam Mouth exam: PRESENT: moist, tongue midline Teeth exam: PRESENT: poor dentation Neck exam: PRESENT: full ROM Respiratory exam: PRESENT: clear to auscultation lilly, symmetrical, unlabored Cardiovascular exam: PRESENT: RRR Pulses: PRESENT: normal radial pulses, normal dorsalis pedis pul Vascular exam: PRESENT: normal capillary refill GI/Abdominal exam: PRESENT: normal bowel sounds, soft. ABSENT: distended, tenderness Rectal exam: PRESENT: deferred Extremities exam: PRESENT: full ROM, tenderness - CVA tenderness. ABSENT: pedal edema Musculoskeletal exam: PRESENT: ambulatory, full ROM, normal inspection Neurological exam: PRESENT: alert, awake, oriented to person, oriented to place, oriented to time, oriented to situation Skin exam: PRESENT: dry, intact, normal color Results Laboratory Results: 07/06/18 05:28 07/06/18 05:28 07/06/18 07/06/18 05:28 05:28 WBC 9.2 RBC 3.62 L Hgb 10.4 L Hct 30.7 L MCV 85 MCH 28.8 MCHC 34.0 RDW 15.2 H Plt Count 227 Seg Neutrophils % Not Reportable Lymphocytes % Not Reportable Monocytes % Not Reportable Eosinophils % Not Reportable Basophils % Not Reportable Absolute Neutrophils Not Reportable Absolute Lymphocytes Not Reportable Absolute Monocytes Not Reportable Absolute Eosinophils Not Reportable Absolute Basophils Not Reportable Sodium 133.7 L Potassium 3.7 Chloride 102 Carbon Dioxide 15 L Anion Gap 17 BUN 12 Creatinine 0.61 Est GFR ( Amer) > 60 Est GFR (Non-Af Amer) > 60 Glucose 273 H Calcium 9.2 Magnesium 1.9 Status: Imported from PACS Assessment & Plan - Diagnosis (1) Metabolic acidosis Is this a current diagnosis for this admission?: Yes Plan: Calculated anion gap 20 Delta ratio 1 -indicative of true metabolic acidosis Patient currently taking metformin, this is likely the culprit No other possible etiology from [place] pneumonic Metformin currently on hold, only using sliding scale insulin (2) Pyelonephritis Is this a current diagnosis for this admission?: Yes Plan: As evidenced by urinalysis indicative of UTI Low-grade fever upon admission (+) Flank pain. (+) CVA tenderness (+) Leukocytosis. Preliminary urine culture results indicative of GNR Currently awaiting urine cultures and sensitivities Empiric antibiotic treatment with Rocephin IV Nubain as needed for pain Tylenol as needed for pain or fever kpak for lower back pain/flank pain (3) Diabetes mellitus type 2 in obese Is this a current diagnosis for this admission?: Yes Plan: H diabetes Accu-Cheks AC at bedtime Humalog sliding scale insulin (4) HTN (hypertension) Qualifiers: Hypertension type: essential hypertension Qualified Code(s): I10 - Essential (primary) hypertension Is this a current diagnosis for this admission?: Yes Plan: PMH HTN Continue home dose metoprolol and lisinopril - Time Time Spent with patient: 15-24 minutes Medications reviewed and adjusted accordingly: Yes Anticipated discharge: Home Within: within 48 hours - Inpatient Certification Based on my medical assessment, after consideration of the patient's comorbidities, presenting symptoms, or acuity I expect that the services needed warrant INPATIENT care.: Yes I certify that my determination is in accordance with my understanding of Medicare's requirements for reasonable and necessary INPATIENT services [42 CFR 412.3e].: Yes Medical Necessity: Need for IV Antibiotics
[2018-07-06] MEDS: INSULIN REG, HUMAN 100 UNIT/ML 3 ML VIAL (PYX) SUBCUT SCH ×2 (16:51→21:47)
[2018-07-07] MEDS: ACETAMINOPHEN 325 MG TABLET PO PRN ×3 (02:28→23:51)
[2018-07-07] MEDS ORDERED: NALBUPHINE HCL INJ 10 MG/1 ML AMPULE ONE ×2 (03:02→10:38)
[2018-07-07] MEDS: NALBUPHINE HCL INJ 10 MG/1 ML AMPULE IV PRN ×2 (03:12→10:50)
[2018-07-07] MEDS: HEPARIN SOD (PORCINE) 5,000 UNIT/ML 1 ML SYRINGE SUBCUT SCH ×3 (05:36→21:14)
[2018-07-07] MEDS: POTASSI CL 20 MEQ/1/2NS 1L 20 MEQ/1,000 ML RTUINJ IV PRN ×2 (05:37→18:42)
[2018-07-07 08:23] LABS: HEMATOCRIT 31.3 % (36.0-47.0); HEMOGLOBIN 10.5 g/dL (12.0-15.5); MEAN CORPUSCULAR HEMOGLOBIN 28.2 pg (27.0-33.4); MEAN CORPUSCULAR HGB CONC 33.4 g/dL (32.0-36.0); MEAN CORPUSCULAR VOLUME 84 fl (80-97); PLATELET COUNT 250 10^3/uL (150-450); RED BLOOD COUNT 3.72 10^6/uL (3.72-5.28); RED CELL DISTRIBUTION WIDTH 14.9 % (11.5-14.0); WHITE BLOOD COUNT 9.6 10^3/uL (4.0-10.5)
[2018-07-07 08:50] LABS: ANION GAP 16 (5-19); BLOOD UREA NITROGEN 9 mg/dL (7-20); CALCIUM 9.5 mg/dL (8.4-10.2); CARBON DIOXIDE 17 mmol/L (22-30); CHLORIDE 103 mmol/L (98-107); GLUCOSE 254 mg/dL (75-110); POTASSIUM 3.5 mmol/L (3.6-5.0); SODIUM 136.1 mmol/L (137-145)
[2018-07-07 09:07] LABS: ABSOLUTE LYMPHOCYTES# (MANUAL) 2.3 10^3/uL (0.5-4.7); ABSOLUTE MONOCYTES # (MANUAL) 0.9 10^3/uL (0.1-1.4); ABSOLUTE NEUTROPHILS# (MANUAL) 6.4 10^3/uL (1.7-8.2); BAND NEUTROPHILS % (MANUAL) 4 % (3-5); BASOPHILS % (MANUAL) 0 % (0-2); EOSINOPHILS % (MANUAL) 0 % (0-6); LYMPHOCYTES % (MANUAL) 24 % (13-45); MONOCYTES % (MANUAL) 9 % (3-13); SEGMENTED NEUTROPHILS % (MAN) 59 % (42-78); TOTAL CELLS COUNTED 100
[2018-07-07 09:19] LABS: PLATELET CLUMPS PRESENT; POLYCHROMASIA 1+
[2018-07-07 09:20] LABS: ANISOCYTOSIS SLIGHT
[2018-07-07 09:22] LABS: METAMYELOCYTES % (MANUAL) 3 % (0); MYELOCYTES % (MANUAL) 1 % (0)
[2018-07-07] MEDS: INSULIN REG, HUMAN 100 UNIT/ML 3 ML VIAL (PYX) SUBCUT SCH ×4 (09:26→21:21)
[2018-07-07] MEDS: CEFTRIAXONE 1 GM/D5W RTU 1 GM/50 ML RTUPB IV SCH (09:27)
[2018-07-07] MEDS: SUCRALFATE SUSP 1 GM/10 ML UDCUP PO SCH ×4 (09:27→21:02)
[2018-07-07] MEDS: DOCUSATE SODIUM 100 MG CAPSULE PO SCH ×2 (09:27→17:42)
[2018-07-07] MEDS: METOCLOPRAMIDE HCL INJ/PF 10 MG/2 ML SDV IV SCH ×4 (09:28→21:05)
[2018-07-07] MEDS: PANTOPRAZOLE SODIUM 40 MG VIAL IV SCH ×2 (09:28→22:34)
[2018-07-07] MEDS ORDERED: MAGNESIUM SULFATE/D5W 1 GM/100 ML RTUPB IV ONE (12:25)
[2018-07-07] MEDS ORDERED: POTASSIUM CHLORIDE 10 MEQ CAPSULE.ER PO ONE (12:26)
[2018-07-07] MEDS ORDERED: MORPHINE SULFATE 10 MG/ML INJ IV PRN (13:00)
[2018-07-07] MEDS ORDERED: TRAMADOL HCL 50 MG TABLET PO PRN (13:01)
--- NOTE | 2018-07-07 14:51 | PDOC PROGRESS REPORT ---
Addendum entered and electronically signed by BENJI PIÑA NP 07/07/18 15:00: Assessment and Plan - Assessment and Plan (1) Metabolic acidosis Is this a current diagnosis for this admission?: Yes (2) Pyelonephritis Is this a current diagnosis for this admission?: Yes (3) Diabetes mellitus type 2 in obese Is this a current diagnosis for this admission?: Yes (4) HTN (hypertension) Qualifiers: Hypertension type: essential hypertension Qualified Code(s): I10 - Essential (primary) hypertension Is this a current diagnosis for this admission?: Yes (5) Hypothyroid Qualifiers: Hypothyroidism type: unspecified Qualified Code(s): E03.9 - Hypothyroidism, unspecified Is this a current diagnosis for this admission?: Yes Plan: Elevated TSH, normal T4, low T3 Initiated Synthroid 12mcg/day Patient will need endocrine follow up after discharge - Time Spent with Patient Medications reviewed and adjusted accordingly: Yes - Disposition Anticipated Discharge: Home Original Note: Subjective Progress Note for:: 07/07/18 Subjective:: 57 y.o. F with HTN, HLD, HYPOthyroidism, DM [facility]. Patient seen this afternoon on rounds, she is resting in bed. She appears much more comfortable today, states she is still experiencing flank pain. Upon physical assessment, the patient is awake, alert and oriented, able to answer all questions appropriately. (+) CVA tenderness. Denies dysuria, urinary frequency or urgency. Abdomen is S/ND (+) TTP. Change Rocephin to Cipro for her UTI/pyelonephritis now that C&S have resulted. Patient stated that Nubain helped with pain control but would not last long. D/c'd Nubain, added IV Morphine and PO Tramadol. Likely d/c home tomorrow when pain has improved. Reason For Visit: ACUTE PYELONEPHRITIS Physical Exam Vital Signs: Temp Pulse Resp BP Pulse Ox 98.5 F 96 18 132/56 H 95 07/07/18 11:55 07/07/18 11:55 07/07/18 11:55 07/07/18 11:55 07/07/18 11:55 Intake & Output 07/06/18 07/07/18 07/08/18 06:59 06:59 06:59 Intake Total 3190 Output Total Balance 3190 Weight 105.9 kg General appearance: PRESENT: obese Eye exam: PRESENT: conjunctiva pink, PERRLA Mouth exam: PRESENT: moist, tongue midline Neck exam: PRESENT: full ROM Respiratory exam: PRESENT: clear to auscultation lilly, symmetrical, unlabored Cardiovascular exam: PRESENT: RRR Pulses: PRESENT: normal radial pulses, normal dorsalis pedis pul GI/Abdominal exam: PRESENT: soft. ABSENT: distended, tenderness Rectal exam: PRESENT: deferred Extremities exam: PRESENT: full ROM. ABSENT: pedal edema Musculoskeletal exam: PRESENT: ambulatory, full ROM Neurological exam: PRESENT: alert, awake, oriented to person, oriented to place, oriented to time, oriented to situation Psychiatric exam: PRESENT: appropriate affect Skin exam: PRESENT: dry, intact, normal color Results Laboratory Results: 07/07/18 07:50 07/07/18 07:50 07/07/18 07/07/18 07:50 07:50 WBC 9.6 RBC 3.72 Hgb 10.5 L Hct 31.3 L MCV 84 MCH 28.2 MCHC 33.4 RDW 14.9 H Plt Count 250 Seg Neutrophils % Not Reportable Lymphocytes % Not Reportable Monocytes % Not Reportable Eosinophils % Not Reportable Basophils % Not Reportable Absolute Neutrophils Not Reportable Absolute Lymphocytes Not Reportable Absolute Monocytes Not Reportable Absolute Eosinophils Not Reportable Absolute Basophils Not Reportable Sodium 136.1 L Potassium 3.5 L Chloride 103 Carbon Dioxide 17 L Anion Gap 16 BUN 9 Creatinine 0.52 Est GFR ( Amer) > 60 Est GFR (Non-Af Amer) > 60 Glucose 254 H Calcium 9.5 Magnesium 1.8 07/04/18 19:15 Clean Catch Midstream Urine Culture - Final Escherichia Coli Assessment & Plan - Diagnosis (1) Metabolic acidosis Is this a current diagnosis for this admission?: Yes Plan: Calculated anion gap 19 Delta ratio 1 -indicative of true metabolic acidosis Patient currently taking metformin, this is likely the culprit No other possible etiology from [place] pneumonic Metformin currently on hold, only using sliding scale insulin (2) Pyelonephritis Is this a current diagnosis for this admission?: Yes Plan: As evidenced by urinalysis indicative of UTI Urine culture positive for E. coli Low-grade fever upon admission (+) Flank pain. (+) CVA tenderness (+) Leukocytosis. Preliminary urine culture results indicative of GNR Currently awaiting urine cultures and sensitivities Switched antibiotics from Rocephin to ciprofloxacin based on cultures and sensitivities IV and tramadol p.o. for pain Tylenol as needed for pain or fever kpak for lower back pain/flank pain (3) Diabetes mellitus type 2 in obese Is this a current diagnosis for this admission?: Yes Plan: PMH diabetes Accu-Cheks AC at bedtime Humalog sliding scale insulin (4) HTN (hypertension) Qualifiers: Hypertension type: essential hypertension Qualified Code(s): I10 - Essential (primary) hypertension Is this a current diagnosis for this admission?: Yes Plan: [facility] HTN Continue home dose metoprolol and lisinopril - Time Time Spent with patient: 15-24 minutes Medications reviewed and adjusted accordingly: Yes Anticipated discharge: Home - Inpatient Certification Based on my medical assessment, after consideration of the patient's comorbidities, presenting symptoms, or acuity I expect that the services needed warrant INPATIENT care.: Yes I certify that my determination is in accordance with my understanding of Medicare's requirements for reasonable and necessary INPATIENT services [42 CFR 412.3e].: Yes
[2018-07-07] MEDS: CIPROFLOXACIN 400 MG/D5W RTU 400 MG/200 ML RTUPB IV SCH ×2 (15:02→21:05)
[2018-07-07] MEDS: LEVOTHYROXINE SODIUM 0.025 MG TABLET PO SCH (15:13)
[2018-07-08] MEDS: POTASSI CL 20 MEQ/1/2NS 1L 20 MEQ/1,000 ML RTUINJ IV PRN ×2 (02:23→09:56)
[2018-07-08] MEDS: LEVOTHYROXINE SODIUM 0.025 MG TABLET PO SCH (06:05)
[2018-07-08] MEDS: HEPARIN SOD (PORCINE) 5,000 UNIT/ML 1 ML SYRINGE SUBCUT SCH ×3 (06:09→22:17)
[2018-07-08 06:53] LABS: HEMATOCRIT 30.8 % (36.0-47.0); HEMOGLOBIN 10.5 g/dL (12.0-15.5); MEAN CORPUSCULAR HEMOGLOBIN 28.5 pg (27.0-33.4); MEAN CORPUSCULAR VOLUME 84 fl (80-97); PLATELET COUNT 245 10^3/uL (150-450); RED BLOOD COUNT 3.67 10^6/uL (3.72-5.28); RED CELL DISTRIBUTION WIDTH 15.1 % (11.5-14.0); WHITE BLOOD COUNT 10.2 10^3/uL (4.0-10.5)
[2018-07-08 07:15] LABS: ALANINE AMINOTRANSFERASE 52 U/L (9-52); ALBUMIN 3.1 g/dL (3.5-5.0); ALKALINE PHOSPHATASE 136 U/L (38-126); ANION GAP 12 (5-19); ASPARTATE AMINO TRANSFERASE 51 U/L (14-36); BILIRUBIN,DIRECT 0.3 mg/dL (0.0-0.4); BILIRUBIN,TOTAL 0.4 mg/dL (0.2-1.3); BLOOD UREA NITROGEN 5 mg/dL (7-20); CALCIUM 9.1 mg/dL (8.4-10.2); CARBON DIOXIDE 21 mmol/L (22-30); CHLORIDE 101 mmol/L (98-107); GLUCOSE 249 mg/dL (75-110); POTASSIUM 3.7 mmol/L (3.6-5.0); TOTAL PROTEIN 5.7 g/dL (6.3-8.2)
[2018-07-08] MEDS ORDERED: MORPHINE SULFATE 10 MG/ML INJ IV PRN (08:22)
[2018-07-08] MEDS: SUCRALFATE SUSP 1 GM/10 ML UDCUP PO SCH ×4 (08:34→21:57)
[2018-07-08] MEDS: METOCLOPRAMIDE HCL INJ/PF 10 MG/2 ML SDV IV SCH ×2 (08:34→12:56)
[2018-07-08] MEDS: INSULIN REG, HUMAN 100 UNIT/ML 3 ML VIAL (PYX) SUBCUT SCH ×4 (08:34→22:05)
[2018-07-08] MEDS: PANTOPRAZOLE SODIUM 40 MG VIAL IV SCH ×2 (09:55→22:00)
[2018-07-08] MEDS: CIPROFLOXACIN 400 MG/D5W RTU 400 MG/200 ML RTUPB IV SCH (09:55)
[2018-07-08] MEDS: DOCUSATE SODIUM 100 MG CAPSULE PO SCH (09:55)
[2018-07-08] MEDS: OXYCODONE-ACETAMINOPHEN 5-325 MG TABLET PO PRN ×3 (10:04→22:05)
[2018-07-08 10:24] LABS: PATH REVIEW PATHOLOGIST REVIEWED
[2018-07-08] MEDS: ACETAMINOPHEN 325 MG TABLET PO PRN ×2 (12:12→22:06)
[2018-07-08] MEDS ORDERED: DOCUSATE SODIUM 100 MG CAPSULE PO PRN (12:57)
--- NOTE | 2018-07-08 14:07 | PDOC PROGRESS REPORT ---
Subjective Progress Note for:: 07/08/18 Subjective:: 57 y.o. F with HTN, HLD, HYPOthyroidism, DM is admittded to [facility] for pyelonephritis. The patient was seen on afternoon rounds. She is found resting in bed comfortably on room air. She reports she is looking forward to eating a normal diet for lunch. She has met with the office support assistant and is looking forward to meeting with the registered dietitian as well to learn about carb counting. She appears to be highly motivated to take control of her diabetes and learn how to self administer insulin. Otherwise, she reports increased fatigue and back pain today as compared to yesterday. However, she does note that she did not sleep well after learning that a long time friend had unexpectedly yesterday. She denies fever, chills, chest pain, dyspnea, abdominal pain, nausea and vomiting. Overall she does feel improved as compared to the time of her admission. She has no other questions or concerns at this time. No concerns per nursing. Reason For Visit: ACUTE PYELONEPHRITIS Physical Exam Vital Signs: Temp Pulse Resp BP Pulse Ox 98.3 F 94 17 130/75 H 98 07/08/18 11:54 07/08/18 11:54 07/08/18 11:54 07/08/18 11:54 07/08/18 11:54 Intake & Output 07/07/18 07/08/18 07/09/18 06:59 06:59 06:59 Intake Total 3190 4220 1400 Balance 3190 4220 1400 Weight 105.9 kg 106 kg General appearance: PRESENT: no acute distress, cooperative, obese, well- developed, well-nourished Head exam: PRESENT: atraumatic, normocephalic Eye exam: PRESENT: conjunctiva pink, EOMI, PERRLA. ABSENT: scleral icterus Ear exam: PRESENT: normal external ear exam Mouth exam: PRESENT: moist, tongue midline Neck exam: ABSENT: carotid bruit, JVD, lymphadenopathy, thyromegaly Respiratory exam: PRESENT: clear to auscultation lilly, symmetrical, unlabored. ABSENT: rales, rhonchi, wheezes Cardiovascular exam: PRESENT: RRR. ABSENT: diastolic murmur, rubs, systolic murmur Pulses: PRESENT: normal dorsalis pedis pul Vascular exam: PRESENT: normal capillary refill GI/Abdominal exam: PRESENT: normal bowel sounds, soft, other - CVA tenderness bilaterally. ABSENT: distended, guarding, mass, organolmegaly, rebound, tenderness Rectal exam: PRESENT: deferred Extremities exam: PRESENT: full ROM. ABSENT: calf tenderness, clubbing, pedal edema Neurological exam: PRESENT: alert, awake, oriented to person, oriented to place, oriented to time, oriented to situation, CN II-XII grossly intact. ABSENT: motor sensory deficit Psychiatric exam: PRESENT: appropriate affect, normal mood. ABSENT: homicidal ideation, suicidal ideation Skin exam: PRESENT: dry, intact, warm. ABSENT: cyanosis, rash Results Laboratory Results: 07/08/18 06:12 07/08/18 06:12 07/08/18 07/08/18 06:12 06:12 WBC 10.2 RBC 3.67 L Hgb 10.5 L Hct 30.8 L MCV 84 MCH 28.5 MCHC 34.0 RDW 15.1 H Plt Count 245 Sodium 134.0 L Potassium 3.7 Chloride 101 Carbon Dioxide 21 L Anion Gap 12 BUN 5 L Creatinine 0.52 Est GFR ( Amer) > 60 Est GFR (Non-Af Amer) > 60 Glucose 249 H Calcium 9.1 Magnesium 1.6 Total Bilirubin 0.4 AST 51 H ALT 52 Alkaline Phosphatase 136 H Total Protein 5.7 L Albumin 3.1 L 07/04/18 19:15 Clean Catch Midstream Urine Culture - Final Escherichia Coli Assessment & Plan - Diagnosis (1) Pyelonephritis Is this a current diagnosis for this admission?: Yes Plan: As evidenced by urinalysis indicative of UTI Low-grade fever upon admission (+) Flank pain. (+) CVA tenderness (+) Leukocytosis. Urine culture reveals E. Coli; sensitive to Cipro Transition to p.o. Cipro today. Continue IV Toradol, Tylenol, and oxycodone as needed for pain. [place] IV morphine for breakthrough pain only. kpak for lower back pain/flank pain (2) Diabetes mellitus type 2 in obese Is this a current diagnosis for this admission?: Yes Plan: A1c 12% Previously on metformin; discontinued secondary to develop of metabolic acidosis. She is placed on a consistent carb diet. Accu-Cheks before meals and at bedtime with Humalog for sliding scale coverage. We will start Lantus 10 units nightly tonight. She has met with the office support assistant; registered dietitian is consulted. Anticipate discharge on both long and short acting insulin. (3) HTN (hypertension) Qualifiers: Hypertension type: essential hypertension Qualified Code(s): I10 - Essential (primary) hypertension Is this a current diagnosis for this admission?: Yes Plan: PMH HTN. Well-controlled on her current home regiment of metoprolol and lisinopril. (4) Hypothyroid Qualifiers: Hypothyroidism type: unspecified Qualified Code(s): E03.9 - Hypothyroidism, unspecified Is this a current diagnosis for this admission?: Yes Plan: Elevated TSH, normal T4, low T3 Continue Synthroid 25 mcg/day (5) Metabolic acidosis Is this a current diagnosis for this admission?: Yes Plan: Resolved; secondary to metformin. No other possible etiology from [place] pneumonic - Time Time Spent with patient: 15-24 minutes Medications reviewed and adjusted accordingly: Yes Anticipated discharge: Home Within: within 24 hours
[2018-07-08] MEDS ORDERED: ACETAMINOPHEN 325 MG TABLET ONE (16:10)
[2018-07-08] MEDS: CIPROFLOXACIN HCL 500 MG TABLET PO SCH (21:57)
[2018-07-08] MEDS ORDERED: INSULIN GLARGINE,HUM.REC.ANLOG 300 UNIT/3 ML INSULN.PEN SUBCUT SCH (22:00)
[2018-07-09] MEDS ORDERED: LEVOTHYROXINE SODIUM 0.025 MG TABLET PO SCH (06:00)
[2018-07-09 06:15] LABS: HEMATOCRIT 31.8 % (36.0-47.0); HEMOGLOBIN 10.9 g/dL (12.0-15.5); MEAN CORPUSCULAR HEMOGLOBIN 28.7 pg (27.0-33.4); MEAN CORPUSCULAR HGB CONC 34.1 g/dL (32.0-36.0); MEAN CORPUSCULAR VOLUME 84 fl (80-97); PLATELET COUNT 246 10^3/uL (150-450); RED BLOOD COUNT 3.78 10^6/uL (3.72-5.28); RED CELL DISTRIBUTION WIDTH 14.7 % (11.5-14.0); WHITE BLOOD COUNT 9.4 10^3/uL (4.0-10.5)
[2018-07-09] MEDS: HEPARIN SOD (PORCINE) 5,000 UNIT/ML 1 ML SYRINGE SUBCUT SCH ×2 (06:19→13:29)
[2018-07-09] MEDS: OXYCODONE-ACETAMINOPHEN 5-325 MG TABLET PO PRN (06:24)
[2018-07-09] MEDS: ACETAMINOPHEN 325 MG TABLET PO PRN ×2 (06:24→11:47)
[2018-07-09 06:32] LABS: ANION GAP 14 (5-19); BLOOD UREA NITROGEN 7 mg/dL (7-20); CALCIUM 9.3 mg/dL (8.4-10.2); CARBON DIOXIDE 22 mmol/L (22-30); CHLORIDE 100 mmol/L (98-107); GLUCOSE 239 mg/dL (75-110)
[2018-07-09] MEDS: SUCRALFATE SUSP 1 GM/10 ML UDCUP PO SCH ×2 (08:19→13:28)
[2018-07-09] MEDS: INSULIN REG, HUMAN 100 UNIT/ML 3 ML VIAL (PYX) SUBCUT SCH ×2 (08:21→11:46)
[2018-07-09] MEDS ORDERED: POTASSIUM CHLORIDE 10 MEQ CAPSULE.ER PO ONE ×2 (08:30→12:00)
[2018-07-09] MEDS: PANTOPRAZOLE SODIUM 40 MG VIAL IV SCH (10:55)
[2018-07-09] MEDS: CIPROFLOXACIN HCL 500 MG TABLET PO SCH (10:56)
[2018-07-09 14:28] VITALS: BP 142/86
--- NOTE | 2018-07-09 16:07 | PDOC DISCHARGE SUMMARY ---
General - Admit/Disc Date/PCP Admission Date/Primary Care Provider: 07/04/18 20:54 GEOFF HOLDER MD Discharge Date: 07/09/18 - Discharge Diagnosis (1) Pyelonephritis Is this a current diagnosis for this admission?: Yes Summary: As evidenced by urinalysis indicative of UTI Low-grade fever upon admission (+) Flank pain. (+) CVA tenderness (+) Leukocytosis. Urine culture reveals E. Coli; sensitive to Cipro She was admitted to the medical floor and initially placed on IV Rocephin and gentle maintenance IV fluids. She was transitioned to p.o. Cipro upon sensitivity results. She is advised to take [id number] Tylenol or Motrin as needed for pain; she is provided a short prescription for oxycodone for breakthrough pain. She is encouraged to drink plenty of water. She is provided a prescription for ciprofloxacin 500 mg twice daily x10 days for a total of 14 days of appropriate therapy. The patient is discharged home in stable condition with adequate urinary boat and minimal discomfort. She is tolerating a consistent carb diet. She is instructed to follow-up with her primary care provider within 1 week and to return to the emergency department as needed for concerning symptoms. (2) Diabetes mellitus type 2 in obese Is this a current diagnosis for this admission?: Yes Summary: A1c 12% Previously on metformin; discontinued secondary to develop of metabolic acidosis. She is placed on a consistent carb diet. Accu-Cheks before meals and at bedtime with Humalog for sliding scale coverage and started on Lantus 10 units nightly. She has met with the community educator and registered dietitian. She has correctly demonstrated carb counting, Accu-Cheks, and insulin administration. She is provided prescriptions for glucometer, test strips, lancets, Lantus pen, and Humalog pen and pen needles. She is advised to check her blood sugar before meals and at bedtime, keep a log and present this to her primary care at her follow-up appointment. She has met with the registered dietitian and community educator; patient confirms to me that she feels comfortable in managing her own insulin regiment. (3) HTN (hypertension) Is this a current diagnosis for this admission?: Yes Summary: PMH HTN. Well-controlled on her current home regiment of metoprolol and lisinopril. (4) Hypothyroid Is this a current diagnosis for this admission?: Yes Summary: Elevated TSH, normal T4, low T3 Continue Synthroid 25 mcg/day. Recommend follow-up thyroid panel in 6-8 weeks. (5) Metabolic acidosis Is this a current diagnosis for this admission?: Yes Summary: Resolved; secondary to metformin. No other possible etiology from [place] pneumonic - Additional Information Resuscitation Status: Full Code Discharge Diet: Diabetic Discharge Activity: Activity As Tolerated, Balance Activity w/Rest Prescriptions: Blood Sugar Diagnostic [Blood Glucose Test] 1 each ACHS #120 strip Blood-Glucose Meter [Blood Glucose Meter] 1 unit MC DAILY PRN #1 unit PRN Reason: Ciprofloxacin HCl [Cipro 500 mg Tablet] 500 mg PO Q12 #20 tablet Insulin Glargine,Hum.rec.anlog [Lantus Insulin 100 Unit/mL] 10 unit SUBCUT QHS #1 insuln.pen Insulin Lispro [Humalog Kwikpen U-100] 0 - 12 unit SQ ACHSP PRN #1 insuln.pen PRN Reason: Lancets [Blood Lancets] 1 each ACHS #120 each Levothyroxine Sodium [Synthroid 0.025 mg Tablet] 0.025 mg PO Q6AM #30 tablet Nicotine [Nicoderm 21 mg/24 Hr Transderm Patch] 1 each TD DAILYP PRN #30 patch.td24 PRN Reason: Oxycodone HCl/Acetaminophen [Percocet 5-325 mg Tablet] 1 tab PO Q4HP PRN #20 tablet PRN Reason: Pen Needle, Diabetic [1St Tier Unifine Pentips Plus] 1 each ACHS #120 dis.needle Home Medications: Simvastatin 40 mg PO DAILY 08/09/14 Aspirin [Ecotrin 81 mg EC Tablet] 162 mg PO DAILY 07/05/18 Omeprazole 20 mg PO DAILY 07/05/18 Acetaminophen [Tylenol 325 mg Tablet] 650 mg PO Q4HP PRN tablet 07/09/18 Blood Sugar Diagnostic [Blood Glucose Test] 1 each ACHS #120 strip 07/09/18 Blood-Glucose Meter [Blood Glucose Meter] 1 unit MC DAILY PRN #1 unit 07/09/18 Ciprofloxacin HCl [Cipro 500 mg Tablet] 500 mg PO Q12 #20 tablet 07/09/18 Insulin Glargine,Hum.rec.anlog [Lantus Insulin 100 Unit/mL] 10 unit SUBCUT QHS #1 insuln.pen 07/09/18 Insulin Lispro [Humalog Kwikpen U-100] 0 - 12 unit SQ ACHSP PRN #1 insuln.pen 07/09/18 Lancets [Blood Lancets] 1 each ACHS #120 each 07/09/18 Levothyroxine Sodium [Synthroid 0.025 mg Tablet] 0.025 mg PO Q6AM #30 tablet 07/09/18 Nicotine [Nicoderm 21 mg/24 Hr Transderm Patch] 1 each TD DAILYP PRN #30 patch.td24 07/09/18 Oxycodone HCl/Acetaminophen [Percocet 5-325 mg Tablet] 1 tab PO Q4HP PRN #20 tablet 07/09/18 Pen Needle, Diabetic [1St Tier Unifine Pentips Plus] 1 each ACHS #120 dis.needle 07/09/18 History of Present Illness History of Present Illness: Per H&P by Dr. Pedro: YULIANA PAEZ is a 57 year old female is a 57-year-old female who presented to the emergency room with a one-week history of nausea and vomiting. She admits that for the last week she has been having constant, aching left flank pain and episodic cramping epigastric abdominal pain, associated with vomiting, both have been progressively worsening to the point where they are now severe. She experiencing severe nausea and vomiting which has precluded her from any oral intake more than just a sip of water or a small sliver of a banana slice. Her nausea vomiting and abdominal pain have been accompanied by subjective fever and chills, constipation, generalized malaise and a decreased appetite all resulting in a weight loss of 9 pounds over the last 5 days. The patient denies prior similar episodes and has not identified any additional aggravating or ameliorating factors for her nausea vomiting and abdominal pain. In the emergency room she was found to have acute kidney injury secondary to dehydration and an obvious pyelonephritis. She was subsequently admitted to the hospital for further evaluation and treatment. Physical Exam Vital Signs: Temp Pulse Resp BP Pulse Ox 98.9 F 86 16 142/86 H 96 07/09/18 14:22 07/09/18 14:22 07/09/18 14:22 07/09/18 14:22 07/09/18 14:22 Intake & Output 07/08/18 07/09/18 07/10/18 06:59 06:59 06:59 Intake Total 4220 1400 Balance 4220 1400 Weight 106 kg 106 kg General appearance: PRESENT: no acute distress, cooperative, obese, well- developed, well-nourished Head exam: PRESENT: atraumatic, normocephalic Eye exam: PRESENT: conjunctiva pink, EOMI, PERRLA. ABSENT: scleral icterus Mouth exam: PRESENT: moist, tongue midline Respiratory exam: PRESENT: clear to auscultation lilly, symmetrical, unlabored. ABSENT: rales, rhonchi, wheezes Cardiovascular exam: PRESENT: RRR, +S1, +S2. ABSENT: diastolic murmur, rubs, systolic murmur Pulses: PRESENT: normal dorsalis pedis pul Vascular exam: PRESENT: normal capillary refill GI/Abdominal exam: PRESENT: normal bowel sounds, soft, other - Bilateral CVA tenderness; improved from yesterday. ABSENT: distended, guarding, mass, organolmegaly, rebound, tenderness Rectal exam: PRESENT: deferred Extremities exam: PRESENT: full ROM. ABSENT: calf tenderness, clubbing, pedal edema Neurological exam: PRESENT: alert, awake, oriented to person, oriented to place, oriented to time, oriented to situation, CN II-XII grossly intact. ABSENT: motor sensory deficit Psychiatric exam: PRESENT: appropriate affect, normal mood. ABSENT: homicidal ideation, suicidal ideation Skin exam: PRESENT: dry, intact, warm. ABSENT: cyanosis, rash Results Laboratory Results: 07/09/18 05:15 07/09/18 05:15 07/09/18 07/09/18 05:15 05:15 WBC 9.4 RBC 3.78 Hgb 10.9 L Hct 31.8 L MCV 84 MCH 28.7 MCHC 34.1 RDW 14.7 H Plt Count 246 Sodium 136.0 L Potassium 3.0 L* Chloride 100 Carbon Dioxide 22 Anion Gap 14 BUN 7 Creatinine 0.52 Est GFR ( Amer) > 60 Est GFR (Non-Af Amer) > 60 Glucose 239 H Calcium 9.3 Qualifiers - * PATIENT BEING DISCHARGED WITH ANY OF THE FOLLOWING DIAGNOSIS: No Plan Discharge Plan: Discharged home with self-care. Follow-up with primary care provider within 1 week. Eat an ADA diet, drink plenty of water, check blood glucose before meals at bedt darshana and take insulin as prescribed. Complete course of ciprofloxacin. Return to the emergency department as needed for concerning symptoms. Time Spent: Greater than 30 Minutes
== END 2018-07-09 15:02 | disposition home or self-care (01) | DRG 690 ==
LOC: ER 14:30 → EH 20:54 → 4N 07-05 03:45 → 2N 07-07 02:30
PROVIDERS: ADMIT Emergency Medicine; ATTEND Emergency Medicine
DX: N10 Acute pyelonephritis (principal); E87.2 Acidosis; E11.8 Type 2 diabetes mellitus with unspecified complications; E78.00 Pure hypercholesterolemia, unspecified; E88.89 Other specified metabolic disorders; T38.3X5A Adverse effect of insulin and oral hypoglycemic [antidiabetic] drugs, initial encounter; I10 Essential (primary) hypertension; E03.9 Hypothyroidism, unspecified; K21.9 Gastro-esophageal reflux disease without esophagitis; F41.9 Anxiety disorder, unspecified; B96.20 Unspecified Escherichia coli [E. coli] as the cause of diseases classified elsewhere; Z79.84 Long term (current) use of oral hypoglycemic drugs; Z79.899 Other long term (current) drug therapy; Y92.9 Unspecified place or not applicable
CPT/HCPCS: 36415; 80048; 80053; 80061; 81001; 82150; 82803; 82962; 83036; 83605; 83690; 83735; 84439; 84443; 84481; 85025; 85027; 87040; 87086; 87088; 87186; 87804; 96361; 96374; 99285; J0696; J0744; J1644; J1815; J2270; J2300; J2550; J2765; J3475; J3480; J3490; J7030; J7120; S0164

== ENCOUNTER 2019-04-04 17:57 | Emergency (ER) | payer MEDICAID, OTHER ==
--- NOTE | 2019-04-04 19:13 | ER Document Report ---
ED Medical Screen (RME) - General Chief Complaint: Leg Injury Stated Complaint: LEG INJURY Time Seen by Provider: 04/04/19 19:11 Primary Care Provider: GEOFF HOLDER MD [Primary Care Provider] - Follow up as needed Mode of Arrival: Wheelchair Information source: Patient Notes: 58-year-old female presented to ED for complaint of pain from behind the knee to the calf. She states she she was at work walking down the aisle when also only she heard a very loud pop. She states she called the nurse line and they told her she had 2 hours to see a doctor. She states she told him she was going to the emergency room. She states she called her son-in-law and he brought her to the emergency room. Patient is alert oriented respirations regular nonlabored speaking in full sentences. She states she is not unable to walk on this leg at all. I have greeted and performed a rapid initial assessment of this patient. A comprehensive ED assessment and evaluation of the patient, analysis of test results and completion of medical decision making process will be conducted by an additional ED providers. TRAVEL OUTSIDE OF THE [place] IN LAST 30 DAYS: No - Related Data Allergies/Adverse Reactions: Penicillins Allergy (Verified 04/04/19 18:47) Sulfa (Sulfonamide Antibiotics) Allergy (Verified 04/04/19 18:47) Past Medical History - Social History Chew tobacco use (# tins/day): No Frequency of alcohol use: None Drug Abuse: None - Past Medical History Cardiac Medical History: Reports: Hx Hypercholesterolemia, Hx Hypertension Denies: Hx Atrial Fibrillation, Hx Congestive Heart Failure, Hx Coronary Artery Disease, Hx Heart Attack Pulmonary Medical History: Denies: Hx Asthma, Hx Bronchitis, Hx COPD, Hx Pneumonia Neurological Medical History: Denies: Hx Cerebrovascular Accident, Hx Seizures Endocrine Medical History: Reports: Hx Diabetes Mellitus Type 2. Denies: Hx Diabetes Mellitus Type 1, Hx Hyperthyroidism, Hx Hypothyroidism Renal/ Medical History: Denies: Hx Peritoneal Dialysis GI Medical History: Reports: Hx Gastroesophageal Reflux Disease. Denies: Hx Cirrhosis, Hx Hepatitis Musculoskeltal Medical History: Denies Hx Arthritis, Denies Hx Gout Skin Medical History: Denies Hx Eczema, Denies Hx Psoriasis Psychiatric Medical History: Reports: Hx Anxiety, Hx Depression Infectious Medical History: Denies: Hx Hepatitis Past Surgical History: Reports: Hx Cholecystectomy, Hx Tonsillectomy, Hx Tubal Ligation, Other - D&C for spontaneous , bladder sling - Immunizations Hx Diphtheria, Pertussis, Tetanus Vaccination: Yes Physical Exam - Vital signs Vitals: Temp Pulse BP Pulse Ox 98.7 F 88 165/86 H 99 04/04/19 18:24 04/04/19 18:24 04/04/19 18:24 04/04/19 18:24 Course - Vital Signs Vital signs: Temp Pulse Resp BP Pulse Ox 98.7 F 88 165/86 H 99 04/04/19 18:48 04/04/19 18:24 04/04/19 18:24 04/04/19 18:48 Doctor's Discharge - Discharge Referrals: GEOFF HOLDER MD [Primary Care Provider] - Follow up as needed
--- NOTE | 2019-04-04 19:51 | RADIOLOGY REPORT (SQ) ---
EXAM DESCRIPTION: TIBIA FIBULA LEFT COMPLETED DATE/TIME: 04/04/2019 7:32 pm REASON FOR STUDY: Pain unable to walk COMPARISON: None. NUMBER OF VIEWS: Two views. TECHNIQUE: Two radiographic images acquired of the left tibia and fibula to include the knee and ank le in at least one projection. LIMITATIONS: None. FINDINGS: MINERALIZATION: Normal. BONES: No acute fracture or dislocation. No worrisome bone lesions. SOFT TISSUES: No obvious swelling or foreign body. OTHER: No other significant finding. IMPRESSION: NO RADIOGRAPHIC EVIDENCE OF ACUTE INJURY. TECHNICAL DOCUMENTATION: JOB ID: [id number] [place]-72 2010 [employer]- All Rights Reserved Reading location - IP/workstation name: [email or web address]
--- NOTE | 2019-04-04 19:52 | RADIOLOGY REPORT (SQ) ---
EXAM DESCRIPTION: KNEE LEFT 4 VIEW COMPLETED DATE/TIME: 04/04/2019 7:32 pm REASON FOR STUDY: Pain unable to walk COMPARISON: None. EXAM PARAMETERS: NUMBER OF VIEWS: Four views. TECHNIQUE: AP, lateral and oblique radiographic images acquired of the left knee. LIMITATIONS: None. FINDINGS: MINERALIZATION: Normal. BONES: No acute fracture or dislocation. No worrisome bone lesions. JOINTS: No effusion. SOFT TISSUES: No significant soft tissue swelling. No radiopaque foreign body. OTHER: No other significant finding. IMPRESSION: NO FRACTURE. TECHNICAL DOCUMENTATION: JOB ID: [id number] [place]-72 2010 [employer]- All Rights Reserved Reading location - IP/workstation name: [email or web address]
--- NOTE | 2019-04-04 20:30 | ER Document Report ---
HPI - HPI Time Seen by Provider: 04/04/19 19:11 Pain Level: 2 Notes: Patient is a 58-year-old female with a history of diabetes who presents complaining of left anterior distal thigh pain, and posterior knee pain status post injury today. Patient states that she was walking when she felt a pop in her leg area. Patient states that it has been painful to ambulate and weight- bear since then. She has not noticed any bruising or swelling otherwise. She is able to eat and drink without difficulty. She is urinating normally and having normal bowel movements. Denies any headache, fever, head injury, neck pain, URI, sore throat, chest pain, palpitations, syncope, cough, shortness of breath, wheeze, dyspnea, abdominal pain, nausea/vomiting/diarrhea, urinary retention, dysuria, hematuria, loss of control of bowel or bladder, numbness/tingling, saddle anesthesia, muscle paralysis, or rash. - ROS Systems Reviewed and Negative: Yes All other systems reviewed and negative - REPRODUCTIVE Reproductive: DENIES: : Past Medical History - General Information source: Patient - Social History Smoking Status: Never Smoker Chew tobacco use (# tins/day): No Frequency of alcohol use: None Drug Abuse: None Family History: CAD, DM, Hypertension Patient has suicidal ideation: No Patient has homicidal ideation: No - Past Medical History Cardiac Medical History: Reports: Hx Hypercholesterolemia, Hx Hypertension Denies: Hx Atrial Fibrillation, Hx Congestive Heart Failure, Hx Coronary Artery Disease, Hx Heart Attack Pulmonary Medical History: Denies: Hx Asthma, Hx Bronchitis, Hx COPD, Hx Pneumonia Neurological Medical History: Denies: Hx Cerebrovascular Accident, Hx Seizures Endocrine Medical History: Reports: Hx Diabetes Mellitus Type 2. Denies: Hx Diabetes Mellitus Type 1, Hx Hyperthyroidism, Hx Hypothyroidism Renal/ Medical History: Denies: Hx Peritoneal Dialysis GI Medical History: Reports: Hx Gastroesophageal Reflux Disease. Denies: Hx Cirrhosis, Hx Hepatitis Musculoskeletal Medical History: Denies Hx Arthritis, Denies Hx Gout Skin Medical History: Denies Hx Eczema, Denies Hx Psoriasis Psychiatric Medical History: Reports: Hx Anxiety, Hx Depression Infectious Medical History: Denies: Hx Hepatitis Past Surgical History: Reports: Hx Cholecystectomy, Hx Tonsillectomy, Hx Tubal Ligation, Other - D&C for spontaneous , bladder sling - Immunizations Hx Diphtheria, Pertussis, Tetanus Vaccination: Yes Vertical Provider Document - CONSTITUTIONAL Agree With Documented VS: Yes Notes: PHYSICAL EXAMINATION: GENERAL: Well-appearing, well-nourished and in no acute distress. LUNGS: Breath sounds clear to auscultation bilaterally and equal. No wheezes rales or rhonchi. HEART: Regular rate and rhythm without murmurs, rubs, gallops. Musculoskeletal: Lt leg/knee: No obvious swelling, ecchymosis, effusion, or deformity. FROM to passive >90 w/o difficulty or tenderness. LROM to active due to pain. Strength 5+/5. N/V intact distal. No bony tenderness. Ligamentous grossly stable, limited exam with larger leg size. Shanna grossly negative. Patellar grind negative. No calf tenderness. Extremities: No cyanosis, clubbing, or edema b/l. Peripheral pulses 2+. Capillary refill less than 3 seconds. Nicole neg b/l. NEUROLOGICAL: Normal speech, limping gait. Normal sensory, motor exams PSYCH: Normal mood, normal affect. SKIN: Warm, Dry, normal turgor, no rashes or lesions noted. - INFECTION CONTROL TRAVEL OUTSIDE OF THE [place] IN LAST 30 DAYS: No Course - Re-evaluation Re-evalutation: 04/04/19 20:30 Patient is an afebrile, well-hydrated, 58-year-old female who presents to the ED with left leg/posterior knee pain which I suspect to be a sprain versus strain. Vitals are acceptable without any significant tachycardia, tachypnea, or hypoxia. PE is otherwise unremarkable for any neurovascular compromise, obvious tendon/ligament rupture, obvious fracture/dislocation, septic joint. X-rays unremarkable for any acute pathology. Knee immobilizer and crutches were provided today. Patient declined any Tylenol/motrin or ice. Patient is nontoxic-appearing. Patient is able to ambulate and weight-bear although she is limping. No other labs or imaging warranted at this time based on H&P. Conservative measures otherwise for symptoms. Recheck with your PCM in 3-5 days. Consider consult orthopedics. Return to the ED with any worsening/concerning symptoms otherwise as reviewed in discharge. Patient is in agreement. - Vital Signs Vital signs: Temp Pulse Resp BP Pulse Ox 98.7 F 88 165/86 H 99 04/04/19 18:48 04/04/19 18:24 04/04/19 18:24 12/07/19 18:48 Discharge - Discharge Clinical Impression: Left leg pain Condition: Stable Disposition: HOME, SELF-CARE Additional Instructions: Rest, Ice, Compression, Elevation Use crutches/splint as directed Tylenol/ibuprofen as needed Light stretches daily Strength exercises as able Moist heat and massage may help F/u with your PCP in 3-5 days for a recheck Consider consult(s) with Orthopedics/physical therapy for ongoing/worsening symptoms Return to the ED with any worsening symptoms and/or development of fever, headache, chest pain, palpitations, syncope, shortness of breath, trouble breathing, abdominal pain, n/v/d, muscle weakness/paralysis, numbness/tingling, swelling, redness, or other worsening symptoms that are concerning to you. Forms: Elevated Blood Pressure, Special Work Note Referrals: GEOFF HOLDER MD [Primary Care Provider] - Follow up as needed [facility] [Provider Group] - Follow up as needed
[2019-04-04 21:01] VITALS: BP 147/86
== END 2019-04-04 21:00 | disposition home or self-care (01) ==
LOC: ER 17:57
DX: M79.605 Pain in left leg (principal); M79.652 Pain in left thigh; M25.562 Pain in left knee; I10 Essential (primary) hypertension
CPT/HCPCS: 99283; 73564; 73590; L1830

== ENCOUNTER 2020-04-27 19:23 | Inpatient (IN) | payer OTHER ==
[2020-04-27] MEDS ORDERED: RINGERS LACTATED IV ONE (20:21)
--- NOTE | 2020-04-27 20:23 | ER Document Report ---
ED Medical Screen (RME) - General Chief Complaint: Nausea/Vomiting Stated Complaint: NAUSEA,VOMITING,CHILLS,FEVER Time Seen by Provider: 04/27/20 20:19 Primary Care Provider: KIMBERLY ZIEGLER DO [Primary Care Provider] - Follow up as needed Notes: Patient presents complaining of nausea vomiting with abdominal pain that started today. Patient reports fever of 101. Patient complains of periumbilical abdominal tenderness. Patient denies any cough. Patient reports a history of diabetes and hypertension. I have greeted and performed a rapid initial assessment of this patient. A comprehensive ED assessment and evaluation of the patient, analysis of test results and completion of the medical decision making process will be conducted by additional ED providers. TRAVEL OUTSIDE OF THE [place] IN LAST 30 DAYS: No - Related Data Allergies/Adverse Reactions: Penicillins Allergy (Verified 04/04/19 18:47) Sulfa (Sulfonamide Antibiotics) Allergy (Verified 04/04/19 18:47) Home Medications: metformin. asa. benadryl prn. omeprazole Past Medical History - Social History Chew tobacco use (# tins/day): No Frequency of alcohol use: None - Past Medical History Cardiac Medical History: Reports: Hx Hypercholesterolemia, Hx Hypertension Denies: Hx Atrial Fibrillation, Hx Congestive Heart Failure, Hx Coronary Artery Disease, Hx Heart Attack Pulmonary Medical History: Denies: Hx Asthma, Hx Bronchitis, Hx COPD, Hx Pneumonia Neurological Medical History: Denies: Hx Cerebrovascular Accident, Hx Seizures Endocrine Medical History: Reports: Hx Diabetes Mellitus Type 2. Denies: Hx Diabetes Mellitus Type 1, Hx Hyperthyroidism, Hx Hypothyroidism Renal/ Medical History: Denies: Hx Peritoneal Dialysis GI Medical History: Reports: Hx Gastroesophageal Reflux Disease. Denies: Hx Cirrhosis, Hx Hepatitis Musculoskeltal Medical History: Denies Hx Arthritis, Denies Hx Gout Skin Medical History: Denies Hx Eczema, Denies Hx Psoriasis Psychiatric Medical History: Reports: Hx Anxiety, Hx Depression Infectious Medical History: Denies: Hx Hepatitis Past Surgical History: Reports: Hx Cholecystectomy, Hx Tonsillectomy, Hx Tubal Ligation, Other - D&C for spontaneous , bladder sling - Immunizations Hx Diphtheria, Pertussis, Tetanus Vaccination: Yes Physical Exam - Vital signs Vitals: Temp Pulse Resp BP Pulse Ox 101.0 F H 130 H 20 177/86 H 90 L 04/27/20 19:30 04/27/20 19:30 04/27/20 19:30 04/27/20 19:30 04/27/20 19:30 - Abdominal Tenderness: Tender - Umbilical tenderness, exam limited as patient is in chair Course - Vital Signs Vital signs: Temp Pulse Resp BP Pulse Ox 101.0 F H 130 H 20 177/86 H 90 L 04/27/20 19:30 04/27/20 19:30 04/27/20 19:30 04/27/20 19:30 04/27/20 19:30 Doctor's Discharge - Discharge Referrals: KIMBERLY ZIEGLER DO [Primary Care Provider] - Follow up as needed
--- NOTE | 2020-04-27 21:40 | RADIOLOGY REPORT (SQ) ---
EXAM DESCRIPTION: Site: CHEST SINGLE VIEW RP: XR CHEST 1 VIEW CLINICAL HISTORY: 59 years Female; fever; COMPARISON: 12/22/2015 FINDINGS: Lungs: Lungs are clear, with no focal infiltrate, pneumothorax, or pleural effusion. 4 mm calcified granuloma in the lateral left upper lobe. Mediastinum: Mediastinum is within normal limits for this positioning. Bones: Bony structures are unremarkable. IMPRESSION: 1. No acute pulmonary findings.
[2020-04-27 21:56] LABS: VENOUS BLOOD BASE EXCESS -7.1 mmol/L; VENOUS BLOOD HCO3 16.3 mmol/L (20-32); VENOUS BLOOD PCO2 27.8 mmHg (35-63); VENOUS BLOOD PH 7.39 (7.30-7.42)
[2020-04-27 21:58] LABS: ABSOLUTE LYMPHOCYTES (AUTO) 0.6 10^3/uL (0.5-4.7); ABSOLUTE MONOCYTES (AUTO) 0.7 10^3/uL (0.1-1.4); ABSOLUTE NEUT (AUTO) 6.7 10^3/uL (1.7-8.2); BASOPHILS % (AUTO) 0.4 % (0-2); HEMATOCRIT 39.1 % (36.0-47.0); LYMPHOCYTES % (AUTO) 7.3 % (13-45); MEAN CORPUSCULAR HEMOGLOBIN 28.6 pg (27.0-33.4); MEAN CORPUSCULAR HGB CONC 33.1 g/dL (32.0-36.0); MEAN CORPUSCULAR VOLUME 86 fl (80-97); MONOCYTES % (AUTO) 8.3 % (3-13); PLATELET COUNT 244 10^3/uL (150-450); RED BLOOD COUNT 4.52 10^6/uL (3.72-5.28); RED CELL DISTRIBUTION WIDTH 14.6 % (11.5-14.0); TOTAL CELLS COUNTED % (AUTO) 100 %; WHITE BLOOD COUNT 7.9 10^3/uL (4.0-10.5)
[2020-04-27 22:07] LABS: INTERNATIONAL RATION (INR) 1.01; PROTHROMBIN TIME 13.5 SEC (11.4-15.4)
--- NOTE | 2020-04-27 22:08 | ER Document Report ---
ED General - General Chief Complaint: Nausea/Vomiting Stated Complaint: NAUSEA,VOMITING,CHILLS,FEVER Time Seen by Provider: 04/27/20 20:19 Primary Care Provider: KIMBERLY ZIEGLER DO [ACTIVE STAFF] - Follow up as needed Mode of Arrival: Wheelchair Information source: Patient Notes: Patient presents to the ER for evaluation of generalized abdominal pain with nausea and vomiting that began 4 to 5 hours ago. The patient states symptoms began just after she ate lunch at [employer]. The patient admits to a fever at home. She denies diarrhea. She denies cough or congestion. She denies shortness of breath or chest pain. She has had no known COVID-19 exposures. Nursing notes reviewed and past medical, social, and family histories reviewed and validated. TRAVEL OUTSIDE OF THE [place] IN LAST 30 DAYS: No - Related Data Allergies/Adverse Reactions: Penicillins Allergy (Verified 04/04/19 18:47) Sulfa (Sulfonamide Antibiotics) Allergy (Verified 04/04/19 18:47) Home Medications: metformin. asa. benadryl prn. omeprazole Past Medical History - General Information source: Patient - Social History Smoking Status: Never Smoker Chew tobacco use (# tins/day): No Frequency of alcohol use: None Drug Abuse: None Lives with: Family Family History: CAD, DM, Hypertension Patient has suicidal ideation: No Patient has homicidal ideation: No - Past Medical History Cardiac Medical History: Reports: Hx Hypercholesterolemia, Hx Hypertension Pulmonary Medical History: Denies: Hx COPD, Hx Pneumonia EENT Medical History: Reports: None Neurological Medical History: Reports: None Endocrine Medical History: Reports: Hx Diabetes Mellitus Type 2 Renal/ Medical History: Reports: None Malignancy Medical History: Reports: None GI Medical History: Reports: Hx Gastroesophageal Reflux Disease Musculoskeletal Medical History: Reports None Skin Medical History: Reports None Psychiatric Medical History: Reports: Hx Anxiety, Hx Depression Traumatic Medical History: Reports: None Infectious Medical History: Reports: None Past Surgical History: Reports: Hx Cholecystectomy, Hx Tonsillectomy, Hx Tubal Ligation, Other - D&C for spontaneous , bladder sling - Immunizations Immunizations up to date: Yes Hx Diphtheria, Pertussis, Tetanus Vaccination: Yes Review of Systems - Review of Systems Notes: Constitutional: Positive for fever. HENT: Negative for sore throat. Eyes: Negative for visual changes. Cardiovascular: Negative for chest pain. Respiratory: Negative for shortness of breath. Gastrointestinal: Positive for nausea and vomiting. Positive for abdominal pain. Negative for diarrhea. Genitourinary: Negative for dysuria. Musculoskeletal: Negative for back pain. Skin: Negative for rash. Neurological: Negative for headaches, weakness or numbness. 10 point ROS negative except as marked above and in HPI. Physical Exam - Vital signs Vitals: Temp Pulse Resp BP Pulse Ox 101.0 F H 130 H 20 177/86 H 90 L 04/27/20 19:30 04/27/20 19:30 04/27/20 19:30 04/27/20 19:30 04/27/20 19:30 - Notes Notes: CONSTITUTIONAL: The patient is illappearing. She is in no significant distress. SKIN: Warm, dry, and intact without rash EYES: Extraocular movements are grossly intact, clear conjunctiva HENT: Normocephalic, atraumatic, dry mucus membranes NECK: No obvious swelling, normal range of motion PULMONARY: Normal chest rise and fall. Breath sounds clear and equal bilaterally. No respiratory distress or stridor CARDIOVASCULAR: Regular rate. No murmurs, rubs, gallops. Distal extremities are warm and well perfused. ABDOMINAL: The abdomen is soft. There is mild tenderness noted in a generalized distribution. NEUROLOGIC: Normal speech, moves all extremities. MUSCULOSKELETAL: No gross deformities, atraumatic PSYCHIATRIC: Normal mood and affect Course - Re-evaluation Re-evalutation: 04/28/20 05:23 This case was discussed with Dr. Maldonado who agrees to evaluate the patient in the emergency room for admission. I discussed with the patient the plan for admission. She agrees with this plan. - Vital Signs Vital signs: Temp Pulse Resp BP Pulse Ox 101.4 F H 130 H 20 144/77 H 94 04/28/20 04:04 04/27/20 19:30 04/28/20 05:01 04/28/20 05:01 04/28/20 05:01 - Laboratory Results Result Diagrams: 04/27/20 21:41 04/27/20 21:40 Laboratory Results Interpreted: 04/27/20 04/27/20 04/27/20 20:26 21:40 21:40 RDW Lymph % (Auto) Seg Neutrophils % VBG pCO2 27.8 L VBG HCO3 16.3 L Sodium 136.2 L Carbon Dioxide 18 L Glucose 368 H Urine Protein 100 H Urine Glucose (UA) >=500 H Urine Ketones 80 H Leukocyte Esterase Rfl LARGE H 04/27/20 21:41 RDW 14.6 H Lymph % (Auto) 7.3 L Seg Neutrophils % 84.0 H VBG pCO2 VBG HCO3 Sodium Carbon Dioxide Glucose Urine Protein Urine Glucose (UA) Urine Ketones Leukocyte Esterase Rfl Critical Laboratory Results Reviewed: Yes Attending or Supervising Physician who Reviewed Labs: BORA BRODY - Radiology Results Critical Radiology Results Reviewed: Yes Attending or Supervising Physician who Reviewed Radiology: BORA BRODY Discharge - Discharge Clinical Impression: Acute pyelonephritis Condition: Serious Disposition: ADMITTED INPATIENT Admitting Provider: [facility] Unit Admitted: Medical Floor
[2020-04-27 22:21] LABS: ALBUMIN 4.4 g/dL (3.5-5.0); ALKALINE PHOSPHATASE 111 U/L (38-126); ANION GAP 14 (5-19); ASPARTATE AMINO TRANSFERASE 26 U/L (14-36); BILIRUBIN,DIRECT 0.2 mg/dL (0.0-0.4); BILIRUBIN,TOTAL 0.6 mg/dL (0.2-1.3); BLOOD UREA NITROGEN 12 mg/dL (7-20); CALCIUM 10.1 mg/dL (8.4-10.2); CARBON DIOXIDE 18 mmol/L (22-30); CHLORIDE 104 mmol/L (98-107); GLUCOSE 368 mg/dL (75-110); POTASSIUM 4.3 mmol/L (3.6-5.0); TOTAL PROTEIN 7.2 g/dL (6.3-8.2)
[2020-04-27 22:33] LABS: APPEARANCE,URINE SLIGHTLY-CLOUDY; BILIRUBIN,URINE NEGATIVE (NEGATIVE); COLOR,URINE YELLOW; GLUCOSE, URINE >=500 mg/dL (NEGATIVE); KETONES,URINE 80 mg/dL (NEGATIVE); PROTEIN,URINE 100 mg/dL (NEGATIVE); URINE SPECIFIC GRAVITY 1.031; UROBILINOGEN,URINE NEGATIVE mg/dL (<2.0)
[2020-04-28] MEDS ORDERED: ONDANSETRON HCL INJ/PF 4 MG/2 ML SDV IV ONE (00:44)
[2020-04-28] MEDS ORDERED: KETOROLAC TROMETHAMINE INJ/PF 30 MG/1 ML SDV IV ONE (00:45)
--- NOTE | 2020-04-28 04:01 | RADIOLOGY REPORT (SQ) ---
EXAM DESCRIPTION: Site: CT ABD/PELVIS WITH IV ONLY RP: CT ABDOMEN PELVIS WITH IV CONTRAST CLINICAL HISTORY: 59 years Female; DIFFUSE abd pain L HIP PAIN.; TECHNIQUE: CT of the abdomen and pelvis using intravenous contrast. All CT scans at this facility use dose modulation, iterative reconstruction, and/or weight based dosing when appropriate to reduce radiation dose to as low as reasonably achievable. COMPARISON: None. FINDINGS: Abdomen: Stomach: Nondistended. Small hiatal hernia. Liver:No focal lesions. No intrahepatic ductal distention. Gallbladder: Surgically absent Pancreas:Within normal limits Spleen:Within normal limits Right kidney: No definite focal lesion, although there is mildly perturbed cortical enhancement and minimal perinephric edema. No hydronephrosis. Left kidney:No hydronephrosis. No focal lesion. Adrenal glands:Within normal limits Vascular structures:Within normal limits Fat-containing umbilical hernia is maximum 2.8 cm wide. There is no acute edema or bowel involvement. Pelvis: Small bowel:No significant distention. Appendix:Within normal limits Colon:No distention or acute pericolonic edema. No free intraperitoneal fluid or air. Bones: No acute bone findings. Bladder: Unremarkable. No pelvic mass or adenopathy. IMPRESSION: 1. Mild right renal changes, suspicious for acute pyelonephritis. Please correlate with urinalysis. 2. No abscess 3. Fat-containing ventral hernia, without acute edema or bowel involvement. 4. Small hiatal hernia 5. Previous cholecystectomy
[2020-04-28] MEDS ORDERED: CIPROFLOXACIN 400 MG/D5W RTU 400 MG/200 ML RTUPB IV SCH (04:30)
[2020-04-28] MEDS ORDERED: DEXTROSE 40% GEL 15 GM TUBE PO PRN ×2 (06:00)
[2020-04-28] MEDS ORDERED: DEXTROSE 50%-WATER 25 GM/50 ML DISP.SYRIN IV PRN ×2 (06:00)
[2020-04-28] MEDS ORDERED: GLUCAGON,HUMAN RECOMB 1 MG INJ IM PRN (06:00)
--- NOTE | 2020-04-28 06:03 | PDOC H&P ---
History of Present Illness Admission Date/PCP: 04/28/20 05:47 RASHIDA JENSEN PA-C Patient complains of: abdominal pain, dysuria, nausea, vomiting History of Present Illness: YULIANA PAEZ is a 59 year old female with a history of diabetes and hypertension who presents to the ED complaining of repeated nausea and vomiting which started after she ate lunch at [employer] 1 day ago. Patient also reports that she has been having lower abdominal pain, dysuria, urgency and frequency for the past few days. She also has associated subjective fever and chills. S he denies any cough, chest pain, palpitation, dizziness, weakness of extremities, diarrhea. She used to be previously on insulin but after she lost her insurance for the past year she has been taking all the Metformin for diabetes. Past Medical History Cardiac Medical History: Reports: Hyperlipidema, Hypertension Denies: Atrial Fibrillation, Congestive Heart Failure, Coronary Artery Disease, Myocardial Infarction Pulmonary Medical History: Denies: Asthma, Bronchitis, Chronic Obstructive Pulmonary Disease (COPD), Pneumonia EENT Medical History: Reports: None Neurological Medical History: Reports: None Denies: Seizures Endocrine Medical History: Reports: Diabetes Mellitus Type 2 Denies: Diabetes Mellitus Type 1, Hyperthyroidism, Hypothyroidism Renal/ Medical History: Reports: None Malignancy Medical History: Reports: None GI Medical History: Reports: Gastroesophageal Reflux Disease Denies: Cirrhosis, Hepatitis Musculoskeltal Medical History: Reports: None Denies: Arthritis, Gout Skin Medical History: Reports: None Denies: Eczema, Psoriasis Psychiatric Medical History: Reports: Depression Traumatic Medical History: Reports: None Hematology: Denies: Anemia, Bleeding Tendencies Infectious Medical History: Reports: None Past Surgical History Past Surgical History: Reports: Cholecystectomy, Tonsillectomy, Tubal Ligation, Other - D&C for spontaneous , bladder sling Social History Information Source: Patient Lives with: Family Smoking Status: Never Smoker Electronic Cigarette use?: No Frequency of Alcohol Use: None Hx Recreational Drug Use: No Drugs: None Hx Prescription Drug Abuse: No - Advance Directive Resuscitation Status: Full Code Family History Family History: CAD, DM, Hypertension Parental Family History Reviewed: Yes Children Family History Reviewed: Yes Sibling(s) Family History Reviewed.: Yes Medication/Allergy Home Medications: Simvastatin 40 mg PO DAILY 08/09/14 Aspirin [Ecotrin 81 mg EC Tablet] 162 mg PO DAILY 07/05/18 Omeprazole 20 mg PO DAILY 07/05/18 Acetaminophen [Tylenol 325 mg Tablet] 650 mg PO Q4HP PRN tablet 07/09/18 Insulin Glargine,Hum.rec.anlog [Lantus Insulin 100 Unit/mL Insulin Pen] 10 unit SUBCUT QHS #1 insuln.pen 07/09/18 Insulin Lispro [Humalog Kwikpen U-100] 0 - 12 unit SQ ACHSP PRN #1 insuln.pen 07/09/18 Levothyroxine Sodium [Synthroid 0.025 mg Tablet] 0.025 mg PO Q6AM #30 tablet 07/09/18 Cetirizine HCl [Zyrtec 10 mg Tablet] 1 tab PO DAILY 08/19/18 Phenazopyridine HCl [Pyridium 100 Mg Tablet] 100 mg PO TID 08/19/18 Allergies/Adverse Reactions: Penicillins Allergy (Verified 04/04/19 18:47) Sulfa (Sulfonamide Antibiotics) Allergy (Verified 04/04/19 18:47) Review of Systems Constitutional: PRESENT: as per HPI Eyes: ABSENT: visual disturbances Ears: ABSENT: hearing changes Cardiovascular: ABSENT: chest pain, dyspnea on exertion, edema, orthropnea, palpitations Respiratory: ABSENT: cough, hemoptysis Gastrointestinal: PRESENT: as per HPI Genitourinary: PRESENT: as per HPI Musculoskeletal: ABSENT: joint swelling Integumentary: ABSENT: rash, wounds Neurological: ABSENT: abnormal gait, abnormal speech, confusion, dizziness, focal weakness, syncope Psychiatric: ABSENT: anxiety, depression, homidical ideation, suicidal ideation Endocrine: PRESENT: as per HPI, polyuria Hematologic/Lymphatic: ABSENT: easy bleeding, easy bruising Physical Exam Vital Signs: Temp Pulse Resp BP Pulse Ox 101.4 F H 130 H 20 144/77 H 94 04/28/20 04:04 04/27/20 19:30 04/28/20 05:01 04/28/20 05:01 04/28/20 05:01 Intake & Output 04/26/20 04/27/20 04/28/20 06:59 06:59 06:59 Intake Total 2930 Balance 2930 Weight 97.8 kg Additional comments: GENERAL APPEARANCE: Alert and oriented x3, in no acute distress HEENT: Normocephalic and atraumatic. No scleral icterus. Moist oral mucosa NECK: Supple. No lymphadenopathy or tenderness. No carotid bruit. No JVD CHEST: Symmetric. Nontender to palpation. LUNGS: Clear with good air entry bilaterally. No wheezing or crackles HEART: Regular rate and rhythm with normal S1 and S2. No murmurs, gallops, or rubs. ABDOMEN: soft, active bowel sounds, has mild thoracic tenderness but no rebound, guarding or rigidity. No organomegaly detected. Has right CVA tenderness EXTREMITIES: No cyanosis, clubbing, or edema. MUSCULOSKELETAL: No deformity, atrophy or swelling noted PSYCHIATRIC: Recent and remote memory is intact. Appropriate mood and affect. SKIN: Warm, dry, and well perfused. No lesions or rashes are noted. NEUROLOGIC: No focal sensory or motor deficits are noted. Results Laboratory Results: 04/27/20 21:41 04/27/20 21:40 04/27/20 04/27/20 04/27/20 20:26 21:40 21:40 WBC RBC Hgb Hct MCV MCH MCHC RDW Plt Count Seg Neutrophils % VBG pH 7.39 VBG pCO2 27.8 L VBG HCO3 16.3 L VBG Base Excess -7.1 Sodium 136.2 L Potassium 4.3 Chloride 104 Carbon Dioxide 18 L Anion Gap 14 BUN 12 Creatinine 0.58 Est GFR ( Amer) > 60 Glucose 368 H Lactic Acid Calcium 10.1 Total Bilirubin 0.6 AST 26 Alkaline Phosphatase 111 Total Protein 7.2 Albumin 4.4 Lipase 39.7 Urine Color YELLOW Urine Appearance SLIGHTLY-CLOUDY Urine pH 6.0 Ur Specific [place] 1.031 Urine Protein 100 H Urine Glucose (UA) >=500 H Urine Ketones 80 H Urine Blood NEGATIVE Urine RBC (Auto) 5 04/27/20 04/27/20 04/28/20 21:40 21:41 00:05 WBC 7.9 RBC 4.52 Hgb 13.0 Hct 39.1 MCV 86 MCH 28.6 MCHC 33.1 RDW 14.6 H Plt Count 244 Seg Neutrophils % 84.0 H VBG pH VBG pCO2 VBG HCO3 VBG Base Excess Sodium Potassium Chloride Carbon Dioxide Anion Gap BUN Creatinine Est GFR ( Amer) Glucose Lactic Acid 1.2 1.7 Calcium Total Bilirubin AST Alkaline Phosphatase Total Protein Albumin Lipase Urine Color Urine Appearance Urine pH Ur Specific [place] Urine Protein Urine Glucose (UA) Urine Ketones Urine Blood Urine RBC (Auto) 04/28/20 04:00 WBC RBC Hgb Hct MCV MCH MCHC RDW Plt Count Seg Neutrophils % VBG pH VBG pCO2 VBG HCO3 VBG Base Excess Sodium Potassium Chloride Carbon Dioxide Anion Gap BUN Creatinine Est GFR ( Amer) Glucose Lactic Acid 1.1 Calcium Total Bilirubin AST Alkaline Phosphatase Total Protein Albumin Lipase Urine Color Urine Appearance Urine pH Ur Specific [place] Urine Protein Urine Glucose (UA) Urine Ketones Urine Blood Urine RBC (Auto) Impressions: Chest X-Ray 04/27/20 20:21 IMPRESSION: 1. No acute pulmonary findings. Abdomen/Pelvis CT 04/28/20 00:52 IMPRESSION: 1. Mild right renal changes, suspicious for acute pyelonephritis. Please correlate with urinalysis. 2. No abscess 3. Fat-containing ventral hernia, without acute edema or bowel involvement. 4. Small hiatal hernia 5. Previous cholecystectomy Assessment and Plan - Diagnosis (1) Acute pyelonephritis Is this a current diagnosis for this admission?: Yes Plan: Presents with lower abdominal pain, dysuria, frequency and fever Physical exam was significant for suprapubic tenderness, CVA tenderness, fever of 101.2 Has no leukocytosis and lactic acid level is within the normal limits UA showed large leukocyte esterase and 101 WBC/HPF CT of the abdomen showed sinus concerning for pyelonephritis Started her on ciprofloxacin 400 mg IV twice daily Follow-up with blood culture and urine culture (2) Diabetes mellitus with hyperglycemia Is this a current diagnosis for this admission?: Yes Plan: Random blood sugar was 368, has no anion gap Start her on Lantus insulin 15 units daily Sliding scale insulin, Accu-Chek and hypoglycemia protocol On diabetic diet (3) Nausea and vomiting Is this a current diagnosis for this admission?: Yes Plan: Likely due to acute pyelonephritis and possible food poisoning Continue treating pyelonephritis as stated above Promethazine 12.5 mg IV every 6 hourly as needed for nausea and vomiting (4) Normal anion gap metabolic acidosis Is this a current diagnosis for this admission?: Yes Plan: Likely due to GI loss from nausea and vomiting Bicarb on BMP was 18 with anion gap of 14 Continue IV fluids Monitor BMP (5) Obesity (BMI 30-39.9) Is this a current diagnosis for this admission?: Yes Plan: Encourage lifestyle modification including dietary change and exercise (6) HTN (hypertension) Qualifiers: Hypertension type: essential hypertension Qualified Code(s): I10 - Essential (primary) hypertension Is this a current diagnosis for this admission?: Yes Plan: Continue home medications - Time Time Spent with patient: 35 or more minutes Total Critical Time (Minutes): 40 Medications reviewed and adjusted accordingly: Yes Anticipated Discharge Disposition: Home, Self Care Anticipated Discharge Timeframe: within 48 hours - Inpatient Certification Based on my medical assessment, after consideration of the patient's comorbidities, presenting symptoms, or acuity I expect that the services needed warrant INPATIENT care.: Yes I certify that my determination is in accordance with my understanding of Medicare's requirements for reasonable and necessary INPATIENT services [42 CFR 412.3e].: Yes Medical Necessity: Significant Comorbidiites Make Outpatient Treatment Too Risky, Need Close Monitoring Due to Risk of Patient Decompensation, Need For IV Fluids, Need for IV Antibiotics Post Hospital Care: D/C or Transfer Summary
[2020-04-28] MEDS: CIPROFLOXACIN 400 MG/D5W RTU 400 MG/200 ML RTUPB IV SCH ×2 (07:59→18:43)
[2020-04-28] MEDS: ACETAMINOPHEN 325 MG TABLET PO PRN ×3 (08:24→20:05)
[2020-04-28] MEDS: INSULIN REG, HUMAN 100 UNIT/ML 3 ML VIAL (PYX) SUBCUT SCH ×4 (08:25→22:33)
[2020-04-28] MEDS: FAMOTIDINE 20 MG TABLET PO SCH ×2 (09:17→21:42)
[2020-04-28] MEDS: ENOXAPARIN SODIUM INJ 40 MG/0.4 ML DISP.SYRIN SUBCUT SCH (09:18)
[2020-04-28] MEDS: PROMETHAZINE HCL INJ 25 MG/1 ML VIAL IV PRN ×3 (09:18→21:42)
[2020-04-28] MEDS ORDERED: INSULIN GLARGINE,HUM.REC.ANLOG 1,000 UNIT/10 ML VIAL SUBCUT SCH ×2 (10:00)
--- NOTE | 2020-04-28 11:51 | EKG REPORT ---
SEVERITY:- ABNORMAL ECG - SINUS TACHYCARDIA PROBABLE LEFT ATRIAL ABNORMALITY BORDERLINE LEFT AXIS DEVIATION BORDERLINE R WAVE PROGRESSION, ANTERIOR LEADS : Confirmed by: Jose George MD 28-Apr-2020 11:50:24
--- NOTE | 2020-04-28 15:07 | Progress Note ---
Provider Note Provider Note: Patient seen and examined by me. Please see H&P from overnight physician for full details of admission. Briefly, patient admitted for acute right-sided pyelonephritis seen on CT scan and UA showing infection with glucosuria. Blood sugars trending rather high although patient has gotten her Lantus and we have not rechecked the blood sugar since then. Continued on ciprofloxacin. Nausea treated with Phenergan and patient states this is effective. We will follow-up tomorrow.
[2020-04-28] MEDS: RINGERS SOLUTION,LACTATED 1,000 ML IV PRN (15:26)
[2020-04-29] MEDS: RINGERS SOLUTION,LACTATED 1,000 ML IV PRN ×3 (00:44→21:42)
[2020-04-29] MEDS ORDERED: ONDANSETRON HCL INJ/PF 4 MG/2 ML SDV IV ONE (01:15)
[2020-04-29] MEDS: ACETAMINOPHEN 325 MG TABLET PO PRN ×2 (01:27→06:23)
[2020-04-29] MEDS: CIPROFLOXACIN 400 MG/D5W RTU 400 MG/200 ML RTUPB IV SCH ×2 (06:10→17:25)
[2020-04-29 07:32] LABS: ABSOLUTE LYMPHOCYTES (AUTO) 1.4 10^3/uL (0.5-4.7); ABSOLUTE MONOCYTES (AUTO) 1.1 10^3/uL (0.1-1.4); ABSOLUTE NEUT (AUTO) 4.6 10^3/uL (1.7-8.2); BASOPHILS % (AUTO) 0.5 % (0-2); EOSINOPHILS % (AUTO) 0.2 % (0-6); HEMATOCRIT 30.6 % (36.0-47.0); LYMPHOCYTES % (AUTO) 19.8 % (13-45); MEAN CORPUSCULAR HEMOGLOBIN 28.9 pg (27.0-33.4); MEAN CORPUSCULAR HGB CONC 33.9 g/dL (32.0-36.0); MEAN CORPUSCULAR VOLUME 85 fl (80-97); MONOCYTES % (AUTO) 15.2 % (3-13); PLATELET COUNT 177 10^3/uL (150-450); RED BLOOD COUNT 3.58 10^6/uL (3.72-5.28); RED CELL DISTRIBUTION WIDTH 14.5 % (11.5-14.0); SEGMENTED NEUTROPHILS % (AUTO) 64.3 % (42-78); TOTAL CELLS COUNTED % (AUTO) 100 %; WHITE BLOOD COUNT 7.1 10^3/uL (4.0-10.5)
[2020-04-29 07:33] LABS: HEMOGLOBIN 10.4 g/dL (12.0-15.5)
[2020-04-29 07:52] LABS: ANION GAP 10 (5-19); BLOOD UREA NITROGEN 10 mg/dL (7-20); CALCIUM 8.9 mg/dL (8.4-10.2); CARBON DIOXIDE 23 mmol/L (22-30); CHLORIDE 101 mmol/L (98-107); GLUCOSE 283 mg/dL (75-110); POTASSIUM 3.2 mmol/L (3.6-5.0)
[2020-04-29] MEDS: INSULIN REG, HUMAN 100 UNIT/ML 3 ML VIAL (PYX) SUBCUT SCH ×4 (08:38→21:41)
[2020-04-29] MEDS ORDERED: ACETAMINOPHEN 325 MG TABLET PO PRN (09:09)
[2020-04-29] MEDS: ENOXAPARIN SODIUM INJ 40 MG/0.4 ML DISP.SYRIN SUBCUT SCH (09:52)
[2020-04-29] MEDS: FAMOTIDINE 20 MG TABLET PO SCH ×2 (09:55→21:40)
[2020-04-29] MEDS ORDERED: ONDANSETRON HCL INJ/PF 4 MG/2 ML SDV IV PRN (10:09)
[2020-04-29] MEDS: INSULIN GLARGINE,HUM.REC.ANLOG 1,000 UNIT/10 ML VIAL SUBCUT SCH (10:50)
[2020-04-29] MEDS: POTASSIUM CHLORIDE 20 MEQ PACKET PO SCH ×2 (12:14→21:40)
--- NOTE | 2020-04-29 17:13 | PDOC PROGRESS REPORT ---
Subjective Subjective:: Per Previous Physician: "YULIANA PAEZ is a 59 year old female with a history of diabetes and hypertension who presents to the ED complaining of repeated nausea and vomiting which started after she ate lunch at [employer] 1 day ago. Patient also reports that she has been having lower abdominal pain, dysuria, urgency and frequency for the past few days. She also has associated subjective fever and chills. She denies any cough, chest pain, palpitation, dizziness, weakness of extremities, diarrhea. She used to be previously on insulin but after she lost her insurance for the past year she has been taking all the Metformin for diabetes." 04/28/2020 Patient seen and examined by me. Please see H&P from overnight physician for full details of admission. Briefly, patient admitted for acute right-sided pyelonephritis seen on CT scan and UA showing infection with glucosuria. Blood sugars trending rather high although patient has gotten her Lantus and we have not rechecked the blood sugar since then. Continued on ciprofloxacin. Nausea treated with Phenergan and patient states this is effective. We will follow-up tomorrow. 04/29/2020 Patient seems to be doing better clinically. Her sodium and potassium are both still low we are repleting these. Blood sugar is significantly elevated and I have increased her Lantus dosing accordingly. Blood cultures growing gram- negative rods in 1/2 bottles and urine culture is growing gram-negative rods as well. Patient states she has had multiple UTIs with E. coli in the past due to having large amounts of diarrhea from her IBS that eventually get spread to her urethra due to the large volume of stool. We will add Metamucil to try to bulk of her stools and also help with her constipation periods of her alternating IBS. Reason For Visit: ACUTE PYELONEPHRITIS,TYPE 2 DIABETES WITH Physical Exam Vital Signs: Temp Pulse Resp BP Pulse Ox 99.6 F 94 16 144/80 H 97 04/29/20 15:35 04/29/20 15:35 04/29/20 15:35 04/29/20 15:35 04/29/20 15:35 Intake & Output 04/28/20 04/29/20 04/30/20 06:59 06:59 06:59 Intake Total 3130 1300 1300 Output Total 100 Balance 3130 1200 1300 Weight 97.8 kg 94.4 kg Exam: General appearance: PRESENT: no acute distress, well-developed, well-nourished, obese white female with BMI 33.6, states feels bit better today Head exam: PRESENT: atraumatic, normocephalic Eye exam: PRESENT: conjunctiva pink. ABSENT: scleral icterus Mouth exam: PRESENT: moist Respiratory exam: PRESENT: clear to auscultation lilly. ABSENT: rales, rhonchi, wheezes Cardiovascular exam: PRESENT: RRR. ABSENT: diastolic murmur, rubs, systolic murmur GI/Abdominal exam: PRESENT: normal bowel sounds, soft, mild right flank pain improved. ABSENT: distended, guarding, mass, organolmegaly, rebound Neurological exam: PRESENT: alert, awake, oriented to person, oriented to place, oriented to time, oriented to situation Psychiatric exam: PRESENT: appropriate affect, normal mood Skin exam: PRESENT: dry, intact, warm Results Laboratory Results: 04/29/20 07:11 04/29/20 07:11 04/29/20 04/29/20 04/29/20 07:11 07:11 07:11 WBC 7.1 RBC 3.58 L Hgb 10.4 L D Hct 30.6 L MCV 85 MCH 28.9 MCHC 33.9 RDW 14.5 H Plt Count 177 Seg Neutrophils % 64.3 Sodium 133.6 L Potassium 3.2 L Chloride 101 Carbon Dioxide 23 Anion Gap 10 BUN 10 Creatinine 0.43 L Est GFR ( Amer) > 60 Glucose 283 H Lactic Acid 0.9 Calcium 8.9 04/27/20 20:26 Clean Catch Midstream Urine Culture - Final Klebsiella(Enterobac)Aerogenes Impressions: Chest X-Ray 04/27/20 20:21 IMPRESSION: 1. No acute pulmonary findings. Abdomen/Pelvis CT 04/28/20 00:52 IMPRESSION: 1. Mild right renal changes, suspicious for acute pyelonephritis. Please correlate with urinalysis. 2. No abscess 3. Fat-containing ventral hernia, without acute edema or bowel involvement. 4. Small hiatal hernia 5. Previous cholecystectomy Assessment and Plan - Diagnosis (1) Acute pyelonephritis Is this a current diagnosis for this admission?: Yes Plan: Per Previous Physician: "Presents with lower abdominal pain, dysuria, frequency and fever Physical exam was significant for suprapubic tenderness, CVA tenderness, fever of 101.2 Has no leukocytosis and lactic acid level is within the normal limits UA showed large leukocyte esterase and 101 WBC/HPF CT of the abdomen showed sinus concerning for pyelonephritis Started her on ciprofloxacin 400 mg IV twice daily Follow-up with blood culture and urine culture" Urine culture: Gram-negative rods Blood culture: Gram-negative rods Ciprofloxacin continues (2) Diabetes mellitus with hyperglycemia Qualifiers: Diabetes mellitus type: type 2 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 Qualified Code(s): E11.65 - Type 2 diabetes mellitus with hyperglycemia; Z79.4 - intermodal dispatcher (current) use of insulin Is this a current diagnosis for this admission?: Yes Plan: T2DM -accucheks, sliding scale insulin -long acting insulin indicated for HgA1C of 10 or greater, home Lantus continued now at increased dose for persistent hyperglycemia -diet counseling -outpt FU with PCP (3) Nausea and vomiting Qualifiers: Vomiting type: unspecified Vomiting Intractability: non-intractable Qualified Code(s): R11.2 - Nausea with vomiting, unspecified Is this a current diagnosis for this admission?: Yes Plan: Per Previous Physician: "Likely due to acute pyelonephritis and possible food poisoning Continue treating pyelonephritis as stated above Promethazine 12.5 mg IV every 6 hourly as needed for nausea and vomiting" Resolved (4) Obesity (BMI 30-39.9) Is this a current diagnosis for this admission?: Yes Plan: Encourage lifestyle modification including dietary change and exercise (5) HTN (hypertension) Qualifiers: Hypertension type: essential hypertension Qualified Code(s): I10 - Essential (primary) hypertension Is this a current diagnosis for this admission?: Yes Plan: Continue home medications (6) Hypokalemia Is this a current diagnosis for this admission?: Yes Plan: Replete and trend BMP (7) Hyponatremia Is this a current diagnosis for this admission?: Yes Plan: Replete and trend BMP - Time Time Spent with patient: 25-34 minutes Medications reviewed and adjusted accordingly: Yes Anticipated Discharge Disposition: Home with Home Health Anticipated Discharge Timeframe: within 48 hours - Inpatient Certification Based on my medical assessment, after consideration of the patient's comorbidities, presenting symptoms, or acuity I expect that the services needed warrant INPATIENT care.: Yes I certify that my determination is in accordance with my understanding of Medicare's requirements for reasonable and necessary INPATIENT services [42 CFR 412.3e].: Yes Medical Necessity: Significant Comorbidiites Make Outpatient Treatment Too Risky, Need Close Monitoring Due to Risk of Patient Decompensation, Need for IV Antibiotics, Risk of Complication if Not Cared For in Hospital, Risk of Diagnosis Which Will Require Inpatient Eval/Care/Monitoring
[2020-04-29] MEDS ORDERED: PSYLLIUM SEED-SF 5.85 GM PACKET PO ONE (17:30)
[2020-04-30] MEDS: CIPROFLOXACIN 400 MG/D5W RTU 400 MG/200 ML RTUPB IV SCH ×2 (05:07→17:56)
[2020-04-30] MEDS: RINGERS SOLUTION,LACTATED 1,000 ML IV PRN ×3 (05:07→22:40)
[2020-04-30] MEDS: INSULIN REG, HUMAN 100 UNIT/ML 3 ML VIAL (PYX) SUBCUT SCH ×4 (08:18→21:25)
[2020-04-30] MEDS: POTASSIUM CHLORIDE 20 MEQ PACKET PO SCH ×2 (10:26→22:32)
[2020-04-30] MEDS: FAMOTIDINE 20 MG TABLET PO SCH ×2 (10:26→21:25)
[2020-04-30] MEDS: INSULIN GLARGINE,HUM.REC.ANLOG 1,000 UNIT/10 ML VIAL SUBCUT SCH (10:27)
[2020-04-30] MEDS: ENOXAPARIN SODIUM INJ 40 MG/0.4 ML DISP.SYRIN SUBCUT SCH (10:28)
[2020-04-30] MEDS: PSYLLIUM SEED-SF 5.85 GM PACKET PO SCH (10:33)
--- NOTE | 2020-04-30 16:37 | PDOC PROGRESS REPORT ---
Subjective Date:: 04/30/20 Subjective:: No adverse events overnight. No new complaints. Vital signs have been stable. No fevers. Blood sugars have been somewhat elevated despite Lantus being started this morning in addition to her sliding scale. Reason For Visit: ACUTE PYELONEPHRITIS Physical Exam Vital Signs: Temp Pulse Resp BP Pulse Ox 98.6 F 88 18 150/90 H 98 04/30/20 15:53 04/30/20 15:53 04/30/20 15:53 04/30/20 15:53 04/30/20 15:53 Intake & Output 04/29/20 04/30/20 05/01/20 06:59 06:59 06:59 Intake Total 1300 4447 1000 Output Total 100 1700 Balance 1200 2747 1000 Weight 94.4 kg 95.1 kg General appearance: PRESENT: no acute distress, well-developed, well-nourished, obese white female Respiratory exam: PRESENT: clear to auscultation lilly. ABSENT: rales, rhonchi, wheezes Cardiovascular exam: PRESENT: RRR. ABSENT: diastolic murmur, rubs, systolic murmur GI/Abdominal exam: PRESENT: normal bowel sounds, soft, mild right flank pain improved. ABSENT: distended, guarding, mass, organolmegaly, rebound Neurological exam: PRESENT: alert, awake, oriented to person, oriented to place, oriented to time, oriented to situation Psychiatric exam: PRESENT: appropriate affect, normal mood Skin exam: PRESENT: dry, intact, warm Results Laboratory Results: 04/29/20 07:11 04/29/20 07:11 04/27/20 22:15 Blood Blood Culture - Final Klebsiella(Enterobac)Aerogenes Impressions: Chest X-Ray 04/27/20 20:21 IMPRESSION: 1. No acute pulmonary findings. Abdomen/Pelvis CT 04/28/20 00:52 IMPRESSION: 1. Mild right renal changes, suspicious for acute pyelonephritis. Please correlate with urinalysis. 2. No abscess 3. Fat-containing ventral hernia, without acute edema or bowel involvement. 4. Small hiatal hernia 5. 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 Qualified Code(s): E11.65 - Type 2 diabetes mellitus with hyperglycemia; Z79.4 - terminal computer operator (current) use of insulin Is this a current diagnosis for this admission?: Yes (3) Hypokalemia Is this a current diagnosis for this admission?: Yes (4) Hyponatremia Is this a current diagnosis for this admission?: Yes (5) Nausea and vomiting Qualifiers: Vomiting type: unspecified Vomiting Intractability: non-intractable Qualified Code(s): R11.2 - Nausea with vomiting, unspecified Is this a current diagnosis for this admission?: Yes (6) Normal anion gap metabolic acidosis Is this a current diagnosis for this admission?: Yes (7) Obesity (BMI 30-39.9) Is this a current diagnosis for this admission?: Yes (8) HTN (hypertension) Qualifiers: Hypertension type: essential hypertension Qualified Code(s): I10 - Essential (primary) hypertension Is this a current diagnosis for this admission?: Yes (9) Hypothyroid Qualifiers: Hypothyroidism type: unspecified Qualified Code(s): E03.9 - Hypothyroidism, unspecified Is this a current diagnosis for this admission?: Yes - Plan Summary Summary: Continue Cipro for pyelonephritis and gram-negative bacteremia. She will take 2 weeks of this at home. She may require some further adjustment of her insulin regimen before she goes home. I increased her Lantus to 35 units daily, will see how that does for her tomorrow morning. Anticipate discharge home tomorrow. - Time Time Spent with patient: 15-24 minutes Anticipated Discharge Disposition: Home, Self Care Anticipated Discharge Timeframe: within 24 hours
[2020-04-30] MEDS ORDERED: POTASSIUM CHLORIDE 20 MEQ PACKET ONE (21:42)
[2020-05-01] MEDS: CIPROFLOXACIN 400 MG/D5W RTU 400 MG/200 ML RTUPB IV SCH (05:55)
[2020-05-01] MEDS: RINGERS SOLUTION,LACTATED 1,000 ML IV PRN (08:24)
[2020-05-01] MEDS: INSULIN REG, HUMAN 100 UNIT/ML 3 ML VIAL (PYX) SUBCUT SCH (08:27)
--- NOTE | 2020-05-01 09:21 | Progress Note ---
Provider Note Provider Note: Ms. Patel may return to work on 05/07/2020.
[2020-05-01] MEDS ORDERED: INSULIN GLARGINE,HUM.REC.ANLOG 1,000 UNIT/10 ML VIAL SUBCUT SCH (10:00)
[2020-05-01] MEDS: ENOXAPARIN SODIUM INJ 40 MG/0.4 ML DISP.SYRIN SUBCUT SCH (10:16)
[2020-05-01] MEDS: FAMOTIDINE 20 MG TABLET PO SCH (10:17)
[2020-05-01] MEDS: PSYLLIUM SEED-SF 5.85 GM PACKET PO SCH (10:17)
[2020-05-01] MEDS: POTASSIUM CHLORIDE 20 MEQ PACKET PO SCH (10:25)
[2020-05-01 11:22] VITALS: BP 139/76
--- NOTE | 2020-05-01 15:45 | PDOC DISCHARGE SUMMARY ---
Impression - Admit/DC Date/PCP Admission Date/Primary Care Provider: 04/30/20 14:39 RASHIDA JENSEN PA-C Discharge Date: 05/01/20 - Discharge Diagnosis (1) Acute pyelonephritis Is this a current diagnosis for this admission?: Yes (2) Diabetes mellitus with hyperglycemia Is this a current diagnosis for this admission?: Yes (3) Hypokalemia Is this a current diagnosis for this admission?: Yes (4) Hyponatremia Is this a current diagnosis for this admission?: Yes (5) Nausea and vomiting Is this a current diagnosis for this admission?: Yes (6) Normal anion gap metabolic acidosis Is this a current diagnosis for this admission?: Yes (7) Obesity (BMI 30-39.9) Is this a current diagnosis for this admission?: Yes (8) HTN (hypertension) Is this a current diagnosis for this admission?: Yes (9) Hypothyroid Is this a current diagnosis for this admission?: Yes (10) Gram-negative bacteremia Is this a current diagnosis for this admission?: Yes - Assessment Summary: Continue Cipro for pyelonephritis and gram-negative bacteremia. She will take 2 weeks of this at home. She may require some further adjustment of her insulin regimen before she goes home. I increased her Lantus to 35 units daily, will see how that does for her tomorrow morning. Anticipate discharge home tomorrow. - Additional Information Resuscitation Status: Full Code Discharge Diet: Diabetic Discharge Activity: Activity As Tolerated Referrals: RASHIDA JENSEN PA-C [Primary Care Provider] - (1 week) Prescriptions: Blood Sugar Diagnostic [Blood Glucose Test] 1 each AC #90 strip Ciprofloxacin HCl [Cipro] 500 mg PO BID #28 tablet Insulin Lispro [Humalog Kwikpen U-100] 0 - 12 unit SQ AC #3 insuln.pen Pen Needle, Diabetic [Insulin Pen Needle] 1 each ASDIR PRN #120 dis.needle PRN Reason: Insulin Glargine,Hum.rec.anlog [Lantus Insulin 100 Unit/mL Insulin Pen] 30 unit SUBCUT QHS #3 pen Home Medications: Aspirin [Ecotrin 81 mg EC Tablet] 81 mg PO DAILY 04/28/20 Glucosamine Sulfate Dipot Chlr [Glucosamine] 1,000 mg PO DAILY 04/28/20 Metformin HCl [Metformin HCl ER] 500 mg PO BID 04/28/20 Blood Sugar Diagnostic [Blood Glucose Test] 1 each AC #90 strip 05/01/20 Ciprofloxacin HCl [Cipro] 500 mg PO BID #28 tablet 05/01/20 Insulin Glargine,Hum.rec.anlog [Lantus Insulin 100 Unit/mL Insulin Pen] 30 unit SUBCUT QHS #3 pen 05/01/20 Insulin Lispro [Humalog Kwikpen U-100] 0 - 12 unit SQ AC #3 insuln.pen 05/01/20 Pen Needle, Diabetic [Insulin Pen Needle] 1 each ASDIR PRN #120 dis.needle 05/01/20 History of Present Illiness History of Present Illness: YULIANA PAEZ is a 59 year old female with a history of diabetes and hypertension who presents to the ED complaining of repeated nausea and vomiting which started after she ate lunch at [employer] 1 day ago. Patient also reports jovani t she has been having lower abdominal pain, dysuria, urgency and frequency for the past few days. She also has associated subjective fever and chills. She denies any cough, chest pain, palpitation, dizziness, weakness of extremities, diarrhea. She used to be previously on insulin but after she lost her insurance for the past year she has been taking all the Metformin for diabetes. Hospital Course Hospital Course: She was placed on Cipro and was given fluid and electrolyte replacement. She was started on sliding scale and Lantus was added. We were able to achieve more reasonable blood sugar control. She was given prescriptions for Lantus, Humalog, test strips, and pen needles. She has done a sliding scale at home before and is familiar with it. She has a glucometer at home. She grew out a Klebsiella from her urine and one of her blood cultures. She has had a good response to antibiotics. She will complete a 2-week course of Cipro at home. 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 She said she has insurance again and so she should not have a problem getting any of her medications. She needs to get a new primary care provider. Her labs and examination were reassuring and she was discharged in stable condition. Physical Exam Vital Signs: Temp Pulse Resp BP Pulse Ox 98.1 F 85 18 151/60 H 97 05/01/20 10:06 05/01/20 10:06 05/01/20 10:06 05/01/20 10:06 05/01/20 10:06 Intake & Output 04/30/20 05/01/20 05/02/20 06:59 06:59 06:59 Intake Total 4447 3200 380 Output Total 1795 842 1640 Balance 2747 3000 -670 Weight 95.1 kg 96.3 kg General appearance: PRESENT: no acute distress, well-developed, well-nourished, obese white female Respiratory exam: PRESENT: clear to auscultation lilly. ABSENT: rales, rhonchi, wheezes Cardiovascular exam: PRESENT: RRR. ABSENT: diastolic murmur, rubs, systolic murmur GI/Abdominal exam: PRESENT: normal bowel sounds, soft, mild right flank pain improved. ABSENT: distended, guarding, mass, organolmegaly, rebound Neurological exam: PRESENT: alert, awake, oriented to person, oriented to place, oriented to time, oriented to situation Psychiatric exam: PRESENT: appropriate affect, normal mood Skin exam: PRESENT: dry, intact, warm Results Laboratory Results: WBC 7.1 10^3/uL (4.0-10.5) 04/29/20 07:11 RBC 3.58 10^6/uL (3.72-5.28) L 04/29/20 07:11 Hgb 10.4 g/dL (12.0-15.5) L D 04/29/20 07:11 Hct 30.6 % (36.0-47.0) L 04/29/20 07:11 MCV 85 fl (80-97) 04/29/20 07:11 MCH 28.9 pg (27.0-33.4) 04/29/20 07:11 MCHC 33.9 g/dL (32.0-36.0) 04/29/20 07:11 RDW 14.5 % (11.5-14.0) H 04/29/20 07:11 Plt Count 177 10^3/uL (150-450) 04/29/20 07:11 Lymph % (Auto) 19.8 % (13-45) 04/29/20 07:11 Dixon % (Auto) 15.2 % (3-13) H 04/29/20 07:11 Eos % (Auto) 0.2 % (0-6) 04/29/20 07:11 Baso % (Auto) 0.5 % (0-2) 04/29/20 07:11 Absolute Neuts (auto) 4.6 10^3/uL (1.7-8.2) 04/29/20 07:11 Absolute Lymphs (auto) 1.4 10^3/uL (0.5-4.7) 04/29/20 07:11 Absolute Monos (auto) 1.1 10^3/uL (0.1-1.4) 04/29/20 07:11 Absolute Eos (auto) 0.0 10^3/uL (0.0-0.6) 04/29/20 07:11 Absolute Basos (auto) 0.0 10^3/uL (0.0-0.2) 04/29/20 07:11 Seg Neutrophils % 64.3 % (42-78) 04/29/20 07:11 PT 13.5 SEC (11.4-15.4) 04/27/20 21:40 INR 1.01 04/27/20 21:40 VBG pH 7.39 (7.30-7.42) 04/27/20 21:40 VBG pCO2 27.8 mmHg (35-63) L 04/27/20 21:40 VBG HCO3 16.3 mmol/L (20-32) L 04/27/20 21:40 VBG Base Excess -7.1 mmol/L 04/27/20 21:40 Sodium 133.6 mmol/L (137-145) L 04/29/20 07:11 Potassium 3.2 mmol/L (3.6-5.0) L 04/29/20 07:11 Chloride 101 mmol/L (98-107) 04/29/20 07:11 Carbon Dioxide 23 mmol/L (22-30) 04/29/20 07:11 Anion Gap 10 (5-19) 04/29/20 07:11 BUN 10 mg/dL (7-20) 04/29/20 07:11 Creatinine 0.43 mg/dL (0.52-1.25) L 04/29/20 07:11 Est GFR ( Amer) > 60 (>60) 04/29/20 07:11 Est GFR (MDRD) Non-Af > 60 (>60) 04/29/20 07:11 Glucose 283 mg/dL (75-110) H 04/29/20 07:11 POC Glucose 249 mg/dL (70-110) H 05/01/20 07:31 Hemoglobin A1c % 11.4 % (4.7-6.0) H 04/29/20 10:04 Lactic Acid 0.9 mmol/L (0.7-2.1) 04/29/20 07:11 Calcium 8.9 mg/dL (8.4-10.2) 04/29/20 07:11 Total Bilirubin 0.6 mg/dL (0.2-1.3) 04/27/20 21:40 Direct Bilirubin 0.2 mg/dL (0.0-0.4) 04/27/20 21:40 Neonat Total Bilirubin Not Reportable 04/27/20 21:40 Neonat Direct Bilirubin Not Reportable 04/27/20 21:40 Neonat Indirect Bili Not Reportable 04/27/20 21:40 AST 26 U/L (14-36) 04/27/20 21:40 ALT 19 U/L (<35) 04/27/20 21:40 Alkaline Phosphatase 111 U/L (38-126) 04/27/20 21:40 Total Protein 7.2 g/dL (6.3-8.2) 04/27/20 21:40 Albumin 4.4 g/dL (3.5-5.0) 04/27/20 21:40 Lipase 39.7 U/L (23-300) 04/27/20 21:40 Urine Color YELLOW 04/27/20 20:26 Urine Appearance SLIGHTLY-CLOUDY 04/27/20 20:26 Urine pH 6.0 (5.0-9.0) 04/27/20 20:26 Ur Specific Omega 1.031 04/27/20 20:26 Urine Protein 100 mg/dL (NEGATIVE) H 04/27/20 20:26 Urine Glucose (UA) >=500 mg/dL (NEGATIVE) H 04/27/20 20:26 Urine Ketones 80 mg/dL (NEGATIVE) H 04/27/20 20:26 Urine Blood NEGATIVE (NEGATIVE) 04/27/20 20: Urine Nitrite (Reflex) NEGATIVE (NEGATIVE) 04/27/20 20:26 Urine Bilirubin NEGATIVE (NEGATIVE) 04/27/20 20:26 Urine Urobilinogen NEGATIVE mg/dL (<2.0) 04/27/20 20:26 Leukocyte Esterase Rfl LARGE (NEGATIVE) H 04/27/20 20:26 Urine RBC (Auto) 5 /HPF 04/27/20 20:26 Urine Bacteria (Auto) TRACE /HPF 04/27/20 20:26 Urine WBC (Reflex) 101 /HPF 04/27/20 20:26 Squamous Epi Cells Auto 1 /HPF 04/27/20 20:26 Urine Mucus (Auto) RARE /LPF 04/27/20 20:26 Urine Ascorbic Acid NEGATIVE (NEGATIVE) 04/27/20 20:26 COVID-19 Source Cancelled 04/27/20 22:30 COVID-19 (JOSE) Cancelled 04/27/20 22:30 Influenza A (Rapid) Cancelled 04/27/20 22:30 Influenza A (RT-PCR) NEGATIVE (NEGATIVE) 04/27/20 22:30 Influenza B (Rapid) Cancelled 04/27/20 22:30 Influenza B (RT-PCR) NEGATIVE (NEGATIVE) 04/27/20 22:30 RSV (RT-PCR) NEGATIVE (NEGATIVE) 04/27/20 22:30 SARS-CoV-2 Rap RNA(RT-PCR) NEGATIVE (NEGATIVE) 04/27/20 22:30 Impressions: Chest X-Ray 04/27/20 20:21 IMPRESSION: 1. No acute pulmonary findings. Abdomen/Pelvis CT 04/28/20 00:52 IMPRESSION: 1. Mild right renal changes, suspicious for acute pyelonephritis. Please correlate with urinalysis. 2. No abscess 3. Fat-containing ventral hernia, without acute edema or bowel involvement. 4. Small hiatal hernia 5. Previous cholecystectomy Plan Time Spent: Greater than 30 Minutes Stroke Is this a Stroke Patient?: No Acute Heart Failure Is this a Heart Failure Patient?: No
== END 2020-05-01 11:00 | disposition home or self-care (01) | DRG 690 ==
LOC: ER 19:23 → EH 04-28 05:47 → INTOOBSV 04-28 05:47 → 2S 04-28 07:00 → OBSVTOIN 04-30 14:39
PROVIDERS: ADMIT Student in an Organized Health Care Education/Training Program; ATTEND Family Medicine
DX: N10 Acute pyelonephritis (principal); E87.1 Hypo-osmolality and hyponatremia; E87.2 Acidosis; R78.81 Bacteremia; E11.65 Type 2 diabetes mellitus with hyperglycemia; E87.6 Hypokalemia; E66.9 Obesity, unspecified; I10 Essential (primary) hypertension; E03.9 Hypothyroidism, unspecified; B96.1 Klebsiella pneumoniae [K. pneumoniae] as the cause of diseases classified elsewhere; E78.5 Hyperlipidemia, unspecified; K21.9 Gastro-esophageal reflux disease without esophagitis; Z20.822 Contact with and (suspected) exposure to COVID-19; Z79.82 Long term (current) use of aspirin; Z79.4 Long term (current) use of insulin; Z90.49 Acquired absence of other specified parts of digestive tract; Z88.0 Allergy status to penicillin; Z88.2 Allergy status to sulfonamides
CPT/HCPCS: 36415; 71045; 74177; 80048; 80053; 81001; 82803; 82962; 83036; 83605; 83690; 85025; 85610; 87040; 87077; 87086; 87088; 87186; 93005; 93010; 96361; 96365; 96375; 99285; 0241U; C9803; G0378; J0744; J1650; J1815; J1885; J2405; J2550; J3490; J7120